=== PATIENT | female | born 1940 | race Caucasian/White ===

== ENCOUNTER → 2017-09-13 | Outpatient (CLI) | payer BC | LOC: FIMAGING 08:51 | PROVIDERS: ATTEND Physical Medicine & Rehabilitation | DX: M47.896 Other spondylosis, lumbar region (principal); M47.897 Other spondylosis, lumbosacral region; M89.38 Hypertrophy of bone, other site ==

== ENCOUNTER 2017-11-29 09:57 | Inpatient (IN) | payer OTHER, BC ==
--- NOTE | 2017-11-29 10:28 | EDPHY ---
H & P Time Seen by Provider: 11/29/17 10:28 HPI/ROS: CHIEF COMPLAINT: Swollen ankles HISTORY OF PRESENT ILLNESS: Patient is concerned that she has swollen ankles. She has a history of GI bleed and had swollen ankles with that before. She presents with 2 days of which she describes as bilateral swollen ankles. She also has some burning in both scapula which is a little bit worse with activity for the last 4 days. However the symptoms are present all the time. She says when this happens she can"here my heart thumb"but no syncope. Swollen ankles are not associated with pain in the leg or any recent trauma. No difficulty walking. No change in her shortness of breath symptoms. REVIEW OF SYSTEMS: Eye: no change in vision, legally blind in right eye ENT: no sore throat Cardiac: no chest pain or syncope Pulmonary: No cough, chronic shortness of breath from COPD unchanged. Abdomen: no vomiting, diarrhea, abdominal pain. Chronic constipation unchanged. Musculoskeletal: Chronic right sciatica unchanged. Skin: no rash Neuro: no headache, she has chronic right arm and hand pain after shoulder surgery which is unchanged. Constitutional: no fever : no urinary symptoms She says she"loves my potassium pills"which she thinks is weird because of the chalky taste. A comprehensive 10 point review of systems is otherwise negative aside from elements mentioned in the history of present illness. PAST MEDICAL HISTORY: Includes right shoulder surgery with chronic right arm pain, right sciatica. Previous colon AVM with GI bleed. Previous pericardial effusion. Social history: She has a twin who was recently diagnosed with atrial fibrillation. Retired nurse, to retired physician General Appearance: Alert and conversant, cooperative. Eyes: No scleral icterus. ENT, Mouth: Normal mucous membranes. Respiratory: Normal respiratory effort, breath sounds equal, lungs are clear to auscultation. Cardiovascular: Regular rate and rhythm. Gastrointestinal: Abdomen is soft and non tender. Neurological: Alert, face symmetric, normal motor and sensory in extremities. Skin: Patient is areas of ecchymosis greater on her right lower extremity than her left. Compartments are soft. Skin is not warm to the touch. No lymphangitis. No blisters. Musculoskeletal: No ankle edema palpated or appreciated. Psychiatric: Not agitated. Emergency Department course/MDM: Hematocrit is 24. Fecal occult blood pending. Admission for anemia with possible lower GI bleed. Gastroenterology consultation with Dr. Hays. Smoking Status: Former smoker Constitutional: Initial Vital Signs Temperature (C) 36.5 C 11/29/17 10:07 Heart Rate 79 11/29/17 10:07 Respiratory Rate 16 11/29/17 10:07 Blood Pressure 121/70 H 11/29/17 10:07 O2 Sat (%) 99 11/29/17 10:07 O2 Delivery Mode Room Air Allergies/Adverse Reactions: hydrocodone Allergy (Intermediate, Verified 11/29/17 10:04) Other-Enter Comments Home Medications: Medication Instructions Recorded Acetaminophen [Tylenol ES 500 mg 500 - 1,000 mg PO BID PRN 11/29/17 (*)] Aspirin [Aspirin 81mg (*)] 81 mg PO DAILY 11/29/17 Bimatoprost 0.01% [Lumigan 0.01% 1 drops LEFTEYE DAILY@204411/29/17 (*)] Brimonidine 0.15% [ALPHAGAN P 1 drops EACHEYE BID@11/29/17 0.15% (RX)] Denosumab [Prolia] 60 mg SQ .Q6MOS 11/29/17 Dextran 70/Hypromellose [Genteal 1 drop RTEYE BID PRN 11/29/17 Tears 0.1%-0.3% Drop] Docusate Sodium [Colace 100 MG (*)] 200 mg PO DAILY PRN 11/29/17 Eylea 1 dose INJ .[id number] 11/29/17 Fexofenadine HCl [Nadia Allergy] 180 mg PO DAILY 11/29/17 Gabapentin [Neurontin 100 MG (*)] 100 mg PO BID@08,16 11/29/17 Gabapentin [Neurontin 300 MG (*)] 300 mg PO HS 11/29/17 Ganciclovir [Zirgan] 1 gm OP DAILY PRN 11/29/17 Ibuprofen [Motrin (*)] 400 mg PO TID PRN 11/29/17 Nicotine Polacrilex [Nicorette gum 2 mg PO BID 11/29/17 (*)] Nicotine [Nicoderm Cq 14 mg (*)] 14 mg TD DAILY 11/29/17 Polyethylene Glycol 3350 [Miralax 17 gm PO DAILY PRN 11/29/17 17 gm (*)] Potassium Cl [Klor-Con 20 meq (*)] 20 meq PO DAILY@199911/29/17 Sennosides [Senna Lax] 3 tab PO DAILY PRN 11/29/17 Vit A/Vit C/Vit E/Zinc/Copper 1 each PO BID 11/29/17 [Preservision Tablet] aMILoride/HYDROCHLOROTHIAZIDE 1 each PO DAILY 11/29/17 [Amiloride HCl-Hctz 5-50 mg Tab] amLODIPine BESYLATE [Norvasc 2.5 2.5 mg PO DAILY 11/29/17 mg (*)] traMADol [Ultram 50 mg (*)] 50 mg PO BID 11/29/17 valACYclovir [Valtrex (*)] 1,000 mg PO DAILY PRN 11/29/17 Medical Decision Making - Diagnostics EKG Interpretation: 12-lead EKG interpreted by me; official reading is in trace master. My interpretation is sinus rhythm rate 65 with intraventricular conduction delay. Imaging Results: Imaging Impressions Chest X-Ray 11/29/17 10:38 Impression: 1. No pneumonia or pulmonary edema. 2. Suspect chronically dislocated right total shoulder arthroplasty. Differential Diagnosis: Differential for anemia considered including but not limited to upper GI bleed, lower GI bleed, bone marrow failure, hemolysis. Consult/Admit Bed Type: [facility] 1107, [facility] 1130 - Data Points Laboratory Results: Laboratory Results 11/29/17 10:25 11/29/17 10:25 11/29/17 11/29/17 11/29/17 11:02 10:25 10:25 WBC 8.65 10^3/uL 10^3/uL (3.80-9.50) RBC 3.48 10^6/uL L 10^6/uL (4.18-5.33) Hgb 7.6 g/dL L g/dL (12.6-16.3) Hct 24.7 % L % (38.0-47.0) MCV 71.0 fL L fL (81.5-99.8) MCH 21.8 pg L pg (27.9-34.1) MCHC 30.8 g/dL L g/dL (32.4-36.7) RDW 15.7 % H % (11.5-15.2) Plt Count 304 10^3/uL 10^3/uL (150-400) MPV 9.1 fL fL (8.7-11.7) Neut % (Auto) 78.1 % H % (39.3-74.2) Lymph % (Auto) 9.5 % L % (15.0-45.0) Roberts % (Auto) 8.8 % % (4.5-13.0) Eos % (Auto) 2.4 % % (0.6-7.6) Baso % (Auto) 0.7 % % (0.3-1.7) Nucleat RBC Rel Count 0.0 % % (0.0-0.2) Absolute Neuts (auto) 6.76 10^3/uL H 10^3/uL (1.70-6.50) Absolute Lymphs (auto) 0.82 10^3/uL L 10^3/uL (1.00-3.00) Absolute Monos (auto) 0.76 10^3/uL 10^3/uL (0.30-0.80) Absolute Eos (auto) 0.21 10^3/uL 10^3/uL (0.03-0.40) Absolute Basos (auto) 0.06 10^3/uL 10^3/uL (0.02-0.10) Absolute Nucleated RBC 0.00 10^3/uL 10^3/uL (0-0.01) Immature Gran % 0.5 % % (0.0-1.1) Immature Gran # 0.04 10^3/uL 10^3/uL (0.00-0.10) Sodium 142 mEq/L mEq/L (135-145) Potassium 3.4 mEq/L L mEq/L (3.5-5.2) Chloride 105 mEq/L mEq/L (97-110) Carbon Dioxide 25 mEq/l mEq/l (22-31) Anion Gap 12 mEq/L mEq/L (8-16) BUN 35 mg/dL H mg/dL (7-23) Creatinine 0.7 mg/dL mg/dL (0.6-1.0) Estimated GFR > 60 Glucose 92 mg/dL mg/dL (70-100) Calcium 9.7 mg/dL mg/dL (8.5-10.4) Troponin I < 0.012 ng/mL ng/mL (0.000-0.034) NT-Pro-B Natriuret Pep 191 pg/mL pg/mL (0-450) Stool Occult Bld Scrn NEGATIVE (NEGATIVE) Departure - Departure Disposition: [facility] Inpatient Acute Clinical Impression: Anemia Qualifiers: Anemia type: unspecified type Qualified Code(s): D64.9 - Anemia, unspecified Condition: Good
[2017-11-29 10:43] LABS: PLATELET COUNT 304 10^3/uL (150-400)
--- NOTE | 2017-11-29 10:49 | CPEKG ---
Heart Rate: 65 RR Interval: 923 P-R Interval: 148 QRSD Interval: 110 QT Interval: 420 QTC Interval: 437 P [place]: 67 QRS [place]: 94 T Wave [place]: 1 EKG Severity - ABNORMAL ECG - EKG Impression: SINUS RHYTHM EKG Impression: NONSPECIFIC INTRAVENTRICULAR CONDUCTION DELAY Electronically Signed By: Zay Mccray 29-Nov-2017 11:03:40
--- NOTE | 2017-11-29 11:40 | ASMTLACE ---
MICHELE Acuity / Level of Answers: Yes Care: Did the patient have an inpatient admission? # of Emergency department Answers: 1-2 visits in the last 6 months Score: 4 Date Signed: 11/29/2017 11:39 AM Electronically Signed By:Yun Robins RN
[2017-11-29] MEDS ORDERED: ONDANSETRON DISINTEGRATING 4 MG TAB PO PRN (13:58)
[2017-11-29] MEDS ORDERED: ONDANSETRON 4 MG/2 ML VIAL IVP PRN (13:58)
[2017-11-29] MEDS ORDERED: PEG 3350/NA SULF,BICARB,CL/KCL (GAVILYTE-G) 4000 ML BTL PO ONE ×2 (13:58→17:15)
[2017-11-29] MEDS ORDERED: ACETAMINOPHEN 325 MG TAB PO PRN (13:58)
[2017-11-29] MEDS ORDERED: TEARS/DEXTRAN 70/HYPROMELLOSE 15 ML OPHT.BTL RTEYE PRN ×2 (14:10→15:23)
--- NOTE | 2017-11-29 14:48 | GHP ---
[f rep st] HISTORY AND PHYSICAL DATE OF ADMISSION: 11/29/2017 CHIEF COMPLAINT: Weakness, heart palpitations. HISTORY OF PRESENT ILLNESS: The patient is a 77-year-old woman with a history significant for nonble eding colonic AV malformations. She has had chronic severe iron deficiency anemia in the past and wa s admitted with similar symptoms 2 years ago. She comes in today complaining of weakness, increasing edema, and heart palpitations. She said her symptoms started about 3 days ago. She has not complai ramona of shortness of breath or chest pain, but says her symptoms are quite similar to her presentation a couple years ago when she had anemia. She denies any change in her stool except for ongoing const ipation. She has had no fevers, chills, or weight changes. She denies any chest pain. No shortness of breath. She does have palpitations and can hear her heart pound. She denies abdominal pain, denice sea, vomiting. She has had no urinary symptoms. PAST MEDICAL HISTORY: 1. COPD, on oxygen at night. 2. Chronic pericarditis with chronic pericardial effusion, which is mild and stable. 3. Sciatica, followed by [facility]. 4. Chronic iron deficiency anemia. 5. Glaucoma. 6. Macular degeneration. 7. History of colonic AV malformations. 8. Hypertension. CURRENT MEDICATIONS: Include Tylenol 1000 mg as needed. Amiloride/hydrochlorothiazide daily. Amlod ipine daily. Aspirin 81 mg daily. Eye drops for her glaucoma. Prolia every 6 months. Artificial T ears. Gabapentin 100 mg twice daily and 300 mg at night. Nicotine patch. Ibuprofen. Potassium. M iraLAX. Senna Lax. Tramadol 50 b.i.d. Valtrex as needed. PreserVision. ALLERGIES: Hydrocodone. FAMILY HISTORY: Parents are . SOCIAL HISTORY: She is and lives with her in their own home in [facility]. She i s a past smoker. She does not drink alcohol. She has a living will and wishes to be [id number]-[id number] ate at this time. She does not need any assistive devices while walking. She cannot drive because o f her eyesight. PHYSICAL EXAMINATION: VITAL SIGNS: Heart rate 77, blood pressure 140/61, respirations 18, _ 97% on room air, afebrile. GENERAL: She is a very pleasant 77-year-old. She is in very mild dist ress. She is alert and oriented. Speech is clear and fluent. HEENT: Atraumatic. NECK: Supple. No adenopathy. HEART: Regular rate and rhythm. No murmur, gallop, or rub. LUNGS: Clear bilateral ly. ABDOMEN: Soft. No masses noted. Positive bowel sounds but diminished. EXTREMITIES: No clubb ing, cyanosis. She has minimally trace edema bilaterally. MUSCULOSKELETAL: No joint deformities. No significant atrophy. SKIN: Intact. No rash. NEUROLOGIC: Speech is fluent. She is alert and or iented. Moves all 4 extremities. LABORATORY DATA: CBC shows a white count of 8.6, hemoglobin 7.6 with platelet count of 304. Electro lytes and renal function are normal. Troponin negative. BNP is normal. Stool occult blood is negat elaine. Chest x-ray unremarkable. ASSESSMENT AND PLAN: A 77-year-old presents with palpitations, found to be anemic and severely iron deficient. Given her past history of colonic arteriovenous malformations, I suspect that she is havi ng a slow gastrointestinal bleed that may be responsible for her slow blood loss anemia. 1. Anemia, iron deficient. Likely lower gastrointestinal bleed, but given her ongoing ibuprofen use , she could certainly have developed an upper gastrointestinal bleed as well. Plan will be to start her on Protonix. I have consulted Gastroenterology and will start her on a GoLYTELY prep for likely colonoscopy in the morning. In the meantime, I will transfuse her 1 unit of packed red blood cells. Follow up hemoglobin and repeat transfusion if she has a hemoglobin less than 8. 2. Chronic obstructive pulmonary disease with nocturnal oxygen needs. We will continue that and con tinue her usual medications. 3. Hypertension. Blood pressure is stable. We will continue her blood pressure medications in the morning when she is able to take oral medications. 4. Glaucoma. Continue her eye drops. 5. Sciatica, severe. Continue her pain medications as requested. She will follow up with Dr. Melvin pardo as an outpatient. 6. Code status: Patient wishes to be a [id number]. /[id number]/MODL
--- NOTE | 2017-11-29 14:53 | GCON ---
[f rep st] CONSULTATION DATE OF CONSULTATION: 11/29/2017 CHIEF COMPLAINT: Anemia. I am asked to see this patient in consultation by Dr. Henley for chief complaint of anemia. HISTORY OF PRESENT ILLNESS: The patient is a 77-year-old known to our practice for evaluation of anemia in 2014. At that time, she underwent upper and lower endoscopy by Dr. Morales. Her upper endoscopy showed mild gastritis, but biopsy was unremarkable. Duodenal biopsies were normal. On her colonoscopy, she had an AVM in the cecum, but it was elected not to treat this, as it was not actively bleeding. She did have diverticulosis noted. Lifelong iron therapy was recommended. She states that she did take iron and her iron stores and anemia resolved, but after a period time she decided to stop the iron. The patient has poor vision, is unaware of any change in color of her stools, and is not sure if there has been any bright red blood or melena. She does have chronic constipation, for which she takes laxatives. No diarrhea. Some occasional abdominal pain, but no nausea and vomiting. She does have occasional dysphagia, but points to her upper throat. She also uses heavy NSAID use, with Motrin 2 tabs t.i.d. for chronic back pain. ALLERGIES: Hydrocodone. MEDICINES ON ADMISSION: Include ibuprofen, folic acid, Neurontin, hydrochlorothiazide, tramadol, and Norvasc. PAST MEDICAL HISTORY: Notable for right shoulder surgery with chronic arm pain , right sciatica, a history of iron deficiency with known cecal AVM, previous pericardial effusion. SOCIAL HISTORY: She is a retired nurse. FAMILY HISTORY: Notable for peptic ulcer disease in her twin brother. REVIEW OF SYSTEMS: I have performed a complete review of systems, which is negative except for the pertinent positives and negatives noted above in the HPI. PHYSICAL EXAM: VITAL SIGNS: Afebrile at 36.6, BP 140/61, pulse 77. CONSTITUTIONAL: Alert and oriented. No apparent distress. EYES: No scleral icterus. HEENT: No oral lesions. CARDIOVASCULAR: Regular rhythm. CHEST: Clear to auscultation. ABDOMEN: Soft, nontender. No hepatosplenomegaly. NEUROLOGIC: Nonfocal. SKIN: No rashes. LABORATORY DATA: Patient has microcytic anemia, with a hemoglobin of 7.1, hematocrit of 24.7, MCV of 71, white count 3.6, and platelets 304. BUN and creatinine are 35 and 0.7. ASSESSMENT: Microcytic anemia with history of known arteriovenous malformations , and patient has tapered off her iron. It is possible that her anemia may be from chronic bleeding from arteriovenous malformations in the cecum or ulcer in the small bowel. However, of concern, patient does take a great deal of ibuprofen. Consider she may have had a subacute upper gastrointestinal bleed. The patient given her poor vision is not unaware of any melena or bright red blood. Fortunately, at this point, she is hemodynamically stable and Hemoccult stool is negative. PLAN: 1. Would recommend transfuse. 2. Suggest upper and lower endoscopy for evaluation for cause of blood loss. Further recommendations to follow. Thanks for this consult. /[id number]/MODL MTDD
[2017-11-29] MEDS ORDERED: SYSTANE ULTRA RTEYE PRN (15:23)
[2017-11-29] MEDS: GABAPENTIN 100 MG CAP PO SCH (15:31)
[2017-11-29] MEDS: PANTOPRAZOLE SODIUM 40 MG TAB PO SCH ×2 (15:31→20:45)
--- NOTE | 2017-11-29 15:50 | PDMN ---
Medical Necessity Medical necessity: C/M review: Patient meets SOLEDAD fox under M-35, Anemia, iron deficiency or unspecified, M-182 Gastrointestinal bleed, lower: Acute and persistent severe iron deficiency anemis, likely lower GI bleed, possible upper GI bleed as well, Hgb 7.6, Hct 24.7, requiring GoLYTELY bowel prep, planned 11/30/2017 colonoscopy, 1 unit PRCS thus far, ongoing oral Protonix BID, pulse oximetry, supplemental O2, comorbid ongoing oral ibuprofen use, COPD with nocturnal O2 needs, hypertension, glaucoma, severe sciatica, history of chronic pericarditis with chronic pericardial effusion - mild and stable, macular degeneration, colonic AV malformations. anticipates > 2 MN LOS for ongoing med nec for eval and TX of above.
[2017-11-29] MEDS: BRIMONIDINE 0.15% 5 ML OPHT.BTL EACHEYE SCH (20:28)
[2017-11-29] MEDS: traMADol 50 MG TAB PO SCH (20:45)
[2017-11-29] MEDS ORDERED: BIMATOPROST 0.01% 2.5 ML OPHT.BTL LEFTEYE SCH (20:45)
[2017-11-29] MEDS: PRESERVISION AREDS2 FORMULA EYE VIT 1 EACH PO SCH (20:58)
[2017-11-29] MEDS ORDERED: NON-FORMULARY NEW DRUG (Vit A/Vit C/Vit E/Zinc/Copper [Preservision Areds Tablet] 1 EACH) PO SCH (21:00)
[2017-11-29] MEDS ORDERED: GENTEAL EYE DROPS EACHEYE SCH (21:00)
[2017-11-29] MEDS ORDERED: GABAPENTIN 300 MG CAP PO SCH (21:00)
[2017-11-30 05:27] LABS: PLATELET COUNT 252 10^3/uL (150-400)
[2017-11-30] MEDS: BRIMONIDINE 0.15% 5 ML OPHT.BTL EACHEYE SCH (07:39)
--- NOTE | 2017-11-30 08:11 | PDANEPAE ---
ANE History of Present Illness Patient presents for EGD, colonoscopy ANE Past Medical History - Cardiovascular History Hx Hypertension: Yes Hx Arrhythmias: No Hx Coronary Artery / Peripheral Vascular Disease: No Hx CHF / Valvular Disease: No Cardiovascular History Comment: SMALL CARDIAC EFFUSION THAT HAS BEEN PRESENT FOR YEARS AND IS STABLE. ON HCTZ FOR SWELLING OF ANKLES - Pulmonary History Hx COPD: Yes Hx Asthma/Reactive Airway Disease: No Hx Recent Upper Respiratory Infection: Yes Hx Oxygen in Use at Home: Yes O2 in Use at Home (L/minute): 2 Hx Sleep Apnea: No Sleep Apnea Screening Result - Last Documented: Negative Pulmonary History Comment: RUPTURED PULM PLEB WITH CT. EMPHYSEMA - Neurologic History Hx Cerebrovascular Accident: No Hx Seizures: No Hx Dementia: No Neurologic History Comment: BROKEN BACK WHEN SHE FELL ON BALL. 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 ANXIETY/ DEPRESSION - Cancer History Hx Cancer: No - Congenital Disorder History Hx Congenital Disorders: No - GI History Hx Gastrointestinal Disorders: No - Other Health History Other Health History: NONE - Chronic Pain History Chronic Pain: Yes (RIGHT SHOULDER AND ARM. LEFT WRIST) - Surgical History Prior Surgeries: BOXED SHOULDER IMPLANT SURGERY 2011. RIGHT TOTAL SHOULDER SCOPE WITH CAMACHO 07/22/11. EPIDURAL INJECTIONS FOR SIATICA. CATARACT SURGERY BILATERAL. RIGHT RETINAL SURGERY ANE Review of Systems Review of Systems: ANE Patient History - Allergies Allergies/Adverse Reactions: hydrocodone Allergy (Intermediate, Verified 11/29/17 10:04) Other-Enter Comments - Home Medications Home medications: home medication list seen and reviewed Home Medications: Acetaminophen [Tylenol ES 500 mg (*)] 500 - 1,000 mg PO BID PRN 11/29/17 [Last Taken Unknown] Aspirin [Aspirin 81mg (*)] 81 mg PO DAILY 11/29/17 [Last Taken 11/29/17] Bimatoprost 0.01% [Lumigan 0.01% (*)] 1 drops LEFTEYE DAILY@204411/29/17 [Last Taken 11/28/17] Brimonidine 0.15% [ALPHAGAN P 0.15% (RX)] 1 drops EACHEYE BID@ [Last Taken 11/29/17] Denosumab [Prolia] 60 mg SQ .Q6MOS 11/29/17 [Last Taken 06/02/17] Dextran 70/Hypromellose [Genteal Tears 0.1%-0.3% Drop] 1 drop RTEYE BID PRN 12/14 [Last Taken 11/29/17] Docusate Sodium [Colace 100 MG (*)] 200 mg PO DAILY PRN 11/29/17 [Last Taken Unknown] Eylea 1 dose INJ .[id number] 11/29/17 [Last Taken Unknown] Fexofenadine HCl [Nadia Allergy] 180 mg PO DAILY 11/29/17 [Last Taken 11/29/17 ] Gabapentin [Neurontin 100 MG (*)] 100 mg PO BID@11/29/17 [Last Taken 11/29] Gabapentin [Neurontin 300 MG (*)] 300 mg PO HS 11/29/17 [Last Taken 11/28/17] Ganciclovir [Zirgan] 1 gm OP DAILY PRN 11/29/17 [Last Taken Unknown] Ibuprofen [Motrin (*)] 400 mg PO TID PRN 11/29/17 [Last Taken Unknown] Nicotine Polacrilex [Nicorette gum (*)] 2 mg PO BID 11/29/17 [Last Taken ] Nicotine [Nicoderm Cq 14 mg (*)] 14 mg TD DAILY 11/29/17 [Last Taken 11/29/17] Polyethylene Glycol 3350 [Miralax 17 gm (*)] 17 gm PO DAILY PRN 11/29/17 [Last Taken Unknown] Potassium Cl [Klor-Con 20 meq (*)] 20 meq PO DAILY@199911/29/17 [Last Taken 11/16] Sennosides [Senna Lax] 3 tab PO DAILY PRN 11/29/17 [Last Taken Unknown] Vit A/Vit C/Vit E/Zinc/Copper [Preservision Tablet] 1 each PO BID 11/29/17 [ Last Taken 11/29/17] aMILoride/HYDROCHLOROTHIAZIDE [Amiloride HCl-Hctz 5-50 mg Tab] 1 each PO DAILY 11/29/17 [Last Taken 11/29/17] amLODIPine BESYLATE [Norvasc 2.5 mg (*)] 2.5 mg PO DAILY 11/29/17 [Last Taken ] traMADol [Ultram 50 mg (*)] 50 mg PO BID 11/29/17 [Last Taken 11/29/17] valACYclovir [Valtrex (*)] 1,000 mg PO DAILY PRN 11/29/17 [Last Taken Unknown] - NPO status NPO Status: no food or drink >8 hours NPO Since - Liquids (Date): 11/30/17 NPO Since - Liquids (Time): 00:00 NPO Since - Solids (Date): 11/30/17 NPO Since - Solids (Time): 00:00 - Anes Hx Anes Hx: no prior problems - Smoking Hx Smoking Status: Former smoker - Family Anes Hx Family Hx Anesthesia Complications: NONE ANE Labs/Vital Signs - Labs Result Diagrams: 11/30/17 04:52 11/30/17 04:52 - Vital Signs Blood Pressure: 140/62 Heart Rate: 60 Respiratory Rate: 12 O2 Sat (%): 92 Height: 165.1 cm Weight: 42.638 kg ANE Physical Exam - Airway Neck exam: FROM Mallampati Score: Class 2 - Pulmonary Pulmonary: no respiratory distress - Cardiovascular Cardiovascular: regular rate and rhythym - ASA Status ASA Status: III
[2017-11-30] MEDS ORDERED: LIDOCAINE 2% 5 ML SDV ONE (08:13)
[2017-11-30] MEDS ORDERED: PROPOFOL/EMULSION 500 MG/50 ML BOTTLE IV ONE (08:13)
[2017-11-30] MEDS ORDERED: ONDANSETRON 4 MG/2 ML VIAL IVP PRN (08:39)
[2017-11-30] MEDS ORDERED: ALBUTEROL 3 ML DEYVIAL IH PRN (08:39)
[2017-11-30] MEDS ORDERED: LR 500 ML IV PRN (08:39)
[2017-11-30] MEDS ORDERED: NALOXONE HCL 0.4 MG/ML INJ IVP PRN (08:39)
[2017-11-30] MEDS ORDERED: Fexofenadine Hcl [Allegra Allergy] 180 MG PO SCH (09:00)
[2017-11-30] MEDS ORDERED: NICOTINE 14 MG/24 HR PATCH TD SCH (09:00)
--- NOTE | 2017-11-30 09:08 | POSTANESTH ---
Post Anesthetic Evaluation Cardiovascular Status: Similar to Pre-Op Cond Respiratory Status: Similar to Pre-op Cond. Level of Consciousness/Mental Status: Alert and Oriented Pain Control: Adequate, Prn Tx Ordered Nausea/Vomiting Control: Adequate, Prn Tx Ordered Complications Possibly Related to Anesthesia: None Noted
[2017-11-30 09:35] VITALS: PULSE 63; O2SAT 93
[2017-11-30] MEDS ORDERED: SENNOSIDES 1 TAB PO PRN (10:31)
[2017-11-30] MEDS ORDERED: POLYETHYLENE GLYCOL 3350 17 GM PKT PO PRN (10:31)
[2017-11-30] MEDS ORDERED: valACYclovir 500 MG TAB PO PRN (10:31)
[2017-11-30] MEDS ORDERED: GANCICLOVIR OP PRN (10:31)
[2017-11-30] MEDS ORDERED: DOCUSATE SODIUM 100 MG CAP PO PRN (10:31)
[2017-11-30] MEDS ORDERED: ACETAMINOPHEN 500 MG TAB PO PRN (10:31)
[2017-11-30] MEDS ORDERED: Denosumab [Prolia] 60 MG SQ SCH (10:45)
[2017-11-30] MEDS ORDERED: EYLEA INJ SCH (10:45)
[2017-11-30] MEDS: PRESERVISION AREDS2 FORMULA EYE VIT 1 EACH PO SCH (10:53)
[2017-11-30] MEDS: traMADol 50 MG TAB PO SCH (10:53)
[2017-11-30] MEDS: PANTOPRAZOLE SODIUM 40 MG TAB PO SCH (10:54)
[2017-11-30] MEDS: GABAPENTIN 100 MG CAP PO SCH (11:04)
[2017-11-30 11:35] VITALS: BP 147/70; RESP 16; TEMP 97.4
--- NOTE | 2017-11-30 14:00 | ASDISCHSUM ---
Discharge Information Plan Status:Home with DME or Oxygen Medically Cleared to Leave:11/29/2017 Discharge Date:11/30/2017 01:20 PM CM D/C Disposition:Home, Routine, Self-Care ADT D/C Disposition:Home, Routine, Self-Care Projected Discharge Date:11/30/2017 12:00 AM Transportation at D/C:Friend Discharge Delay Reason: Follow-Up Date:11/30/2017 12:00 AM Discharge Slot:2 - 12:01 pm - 18:00 pm Final Diagnosis: Placement Information Patient Contact Information Contact Name:VERONICA Relationship: Address:[address] City:[place] Alternate Phone: [facility]/Zip Code:[place] [address] Email: Financial Information Financial Class:HMO and PPO Plans Primary Plan Desc:[employer] [facility] PL[facility] Primary Plan Number:[id number] Secondary Plan Desc:MEDICARE INPATIENT Secondary Plan Number:[id number] Assessment Information LACE LACE Acuity / Level of Answers: Yes Care: Did the patient have an inpatient admission? # of Emergency department Answers: 1-2 visits in the last 6 months Score: 4 Date Signed: 11/29/2017 11:39 AM Electronically Signed By:Yun Robins RN [facility] CM Progress Note CM Note CM Note Notes: Per patient chart, Shawna is a 77 year old who presented to ED 11/29/17 with palpitations, bilateral ankle edema, and history of GI bleed. Patient found to be anemic and extremely iron deficient, patient was assessed by GI and it was recommended patient undergo a colonoscopy which was completed this morning. 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 Patient does not drive due to blind R eye. Patient is listed with DNR status. Demographics lists health coverage as [employer] Federal Plan and Medicare Inpatient. Discharge planned for today. CM available to follow and address discharge needs. Date Signed: 11/30/2017 01:58 PM Electronically Signed By:Sejal Wells Case Management Discharge Plan Note Case Management Discharge Discharge Order Complete? Answers: Yes Patient to Obtain Answers: via Family Medications Transportation Arranged Answers: Family/Friends Transport will Pick (Date 11/30/2017 01:00 AM & Time) Family Notified Answers: Yes Discharge Comments Notes: CM met with patient prior to discharge, she states she has everything set up at home. Patient signed IM and copy given to patient and placed in back of chart. Patient states her daughter in law will be taking her home today. No further discharge needs identified at this time, patient to discharge independently. Date Signed: 11/30/2017 01:59 PM Electronically Signed By:Sejal Wells Intervention Information Intervention Type:*IM-Signed Date of Service:11/30/2017 11:43 AM Patient Type:Inpatient Staff Member:Sejal Wells Hours: Discipline: Severity: Comment:placed in back of chart
--- NOTE | 2017-11-30 14:56 | GDS ---
[f rep st] DISCHARGE SUMMARY CHIEF COMPLAINT: Weakness. PHYSICAL EXAM: GENERAL: The patient is alert. VITAL SIGNS: Afebrile at 36.3 , pulse is 63, respiratory rate 16, blood pressure is 147/70, she is saturating greater than 90% on room air. I have seen and evaluated the patient on the day of discharge. HOSPITAL COURSE: The patient is a 77-year-old female, who presented to the urgent care with complaints of weakness. She was evaluated and transferred to the hospital for admission. She was diagnosed with: 1. Anemia, this is iron deficient in component. The patient did receive consultation during this hospitalization from Gastroenterology. An upper and lower endoscopy were performed during this hospitalization, noting gastritis. It was recommended that the patient continue her oral iron supplement and be initiated on Protonix at the time of disposition. She did receive a unit of packed red blood cells during this hospital course. Her blood count remained stable at the time of disposition, with no further signs of bleeding. She will follow up with her primary care physician. 2. Chronic obstructive pulmonary disease. She uses oxygen nocturnally and will continue this with no acute exacerbation identified. 3. Hypertension. Her blood pressure was well controlled during this hospital course. DISPOSITION: The patient will be discharged home independently. The patient recovered faster then anticipated requiring less hospitalization then expected. FOLLOWUP: Will be with Dr. Morales, her primary inspector rag sorting, as well as Dr. Maddie Peck, her primary care provider. DISCHARGE MEDICATIONS: I have not adjusted the patient's previously prescribed home medications. I have initiated Protonix and provided a prescription for her at the time of disposition. She is instructed to have her hemoglobin and hematocrit checked in the next 2-3 days to assure stability. She is aware of this. I have spent greater than 35 minutes in the care, coordination, and management of the patient's disposition. /[id number]/MODL MTDD
[2017-11-30] MEDS ORDERED: POTASSIUM CL 20 MEQ TAB PO SCH (20:00)
[2017-11-30] MEDS ORDERED: NICOTINE POLACRILEX 2 MG GUM B SCH (21:00)
--- NOTE | 2017-12-03 07:51 | GIREPORT ---
[facility] Surgical Services - Endoscopy Department Patient Name: CROW LOERA Procedure Date: 11/30/2017 8:10 AM Patient Type: Inpatient Attending MD/ ER Physician: Vanda Hays MD Procedure: Upper GI endoscopy Indications: Iron deficiency anemia Providers: Vanda Hays MD Medicines: Monitored Anesthesia Care Complications: No immediate complications. Description of Procedure: After obtaining informed consent, the endoscope was passed under direct vision. Throughout the procedure, the patient's blood pressure, pulse, and oxygen saturations were monitored continuously. The Endoscope was intro duced through the mouth, and advanced to the second part of duodenum. The upp er GI endoscopy was accomplished without difficulty. The patient tolerated th e procedure well. Findings: The esophagus was normal. Localized moderate inflammation characterized by erosions and granulari ty was found in the gastric antrum. Biopsies were taken with a cold forcep s for histology. Estimated blood loss was minimal. The examined duodenum was normal. Estimated Blood Loss: Estimated blood loss was minimal. Post Op Diagnosis: - Normal esophagus. - Gastritis. Biopsied. Suspect rom NSAIDS. No acitve bleeding. - Normal examined duodenum. Recommendation: - Await pathology results. - Advance diet as tolerated. - Limit NSAIDS if possible. - Use Protonix (pantoprazole) 40 mg PO daily for at least 8 weeks or indefinitely if requires director long term care NSADIS. - Supplement iron, senior care for AVMs in colon. - [facility]. - Thank you for allowing me to participate in the care of your patient. Attending Participation: I personally performed the entire procedure. Vanda Hays MD Vanda Hays MD 11/30/2017 8:51:10 AM This report has been signed electronicallyKobrandyn Hays MD Number of Addenda: 0 Note Initiated On: 11/30/2017 8:10 AM [email or web address]
--- NOTE | 2017-12-03 07:52 | GIREPORT ---
[facility] Surgical Services - Endoscopy Department Patient Name: CROW LOERA Procedure Date: 11/30/2017 8:10 AM Patient Type: Inpatient Attending MD/ ER Physician: Vanda Hays MD Procedure: Colonoscopy Indications: Iron deficiency anemia, discussed treatment for AVM but pt declined treatment due to potential risks unless actively bleeding. Providers: aVnda Hays MD Medicines: Monitored Anesthesia Care Complications: No immediate complications. Description of Procedure: After obtaining informed consent, the scope was passed under direct vis ion. Throughout the procedure, the patient's blood pressure, pulse, and oxyg en saturations were monitored continuously. The Colonoscope with irrigatio n channel was introduced through the anus and advanced to the cecum, identified by appendiceal orifice and ileocecal valve. The colonoscopy was performed without difficulty. The patient tolerated the procedure well. The quality of the bowel preparation was poor. The ileocecal valve, appendi ceal orifice, and rectum were photographed. Findings: The perianal and digital rectal examinations were normal. Multiple diverticula were found in the entire colon. A few small angioectasias without bleeding were found in the cecum. Estimated Blood Loss: Estimated blood loss: none. Post Op Diagnosis: - Preparation of the colon was poor. - Diverticulosis in the entire examined colon. - Non-bleeding colonic angioectasias. - No specimens collected. Recommendation: - Advance diet as tolerated. - No repeat colonoscopy due to age. - MCC iron. - Miralax daily for constipation. - Will sign off. - [facility] to [facility]. - Thank you for allowing me to participate in the care of your patient. Attending Participation: I personally performed the entire procedure. Vanda Hays MD Vanda Hays MD 11/30/2017 8:55:20 AM This report has been signed electronicallyVanda Hays MD Number of Addenda: 0 Note Initiated On: 11/30/2017 8:10 AM Total Procedure Duration Time 0 hours 15 minutes 56 seconds [email or web address]
== END 2017-11-30 13:20 | disposition home or self-care (01) | DRG 812 ==
LOC: F3E 14:25
PROVIDERS: ADMIT Hospitalist; ATTEND Hospitalist
PROC: 30233N1 Transfusion of Nonautologous Red Blood Cells into Peripheral Vein, Percutaneous Approach (ICD-10-PCS; 2017-11-29)
PROC: 0DJD8ZZ Inspection of Lower Intestinal Tract, Via Natural or Artificial Opening Endoscopic (ICD-10-PCS; principal; 2017-11-30 08:00)
PROC: 0DB68ZX Excision of Stomach, Via Natural or Artificial Opening Endoscopic, Diagnostic (ICD-10-PCS; principal; 2017-11-30 08:00)
DX: D50.9 Iron deficiency anemia, unspecified (principal); J44.9 Chronic obstructive pulmonary disease, unspecified; I10 Essential (primary) hypertension; K29.70 Gastritis, unspecified, without bleeding; H40.9 Unspecified glaucoma; M54.30 Sciatica, unspecified side; Q45.8 Other specified congenital malformations of digestive system; Z66 Do not resuscitate; Z87.891 Personal history of nicotine dependence
CPT/HCPCS: J2704; P9016

== ENCOUNTER 2018-04-25 12:07 | Emergency (ER) | payer BC ==
[2018-04-25] MEDS ORDERED: NS 1,000 ML IV ONE (13:22)
[2018-04-25] MEDS ORDERED: HYDROmorphONE/DILAUDID 2 MG/ML INJ IVP ONE (13:22)
[2018-04-25] MEDS ORDERED: ONDANSETRON 4 MG/2 ML VIAL IVP ONE (13:22)
--- NOTE | 2018-04-25 13:26 | EDPHY ---
H & P Stated Complaint: back/right side pain starting this morning Time Seen by Provider: 04/25/18 13:14 HPI/ROS: CHIEF COMPLAINT: Right flank pain HISTORY OF PRESENT ILLNESS: Patient is an 78-year-old female history of COPD and chronic back pain with sciatica who comes to the emergency department complaining of pain in her right flank that began while she was sitting at the table this morning. It was gradual in onset but has progressed throughout the day. She now states she has never had back pain this bad before. She had a normal urination at 9:00 a.m.. No nausea vomiting. No trauma. It is worsened by movement. No focal weakness, paresthesias or deficits. No bowel or bladder abnormalities. Fever. She has never had kidney stones before. REVIEW OF SYSTEMS: Constitutional: denies: chills, fever, recent illness, recent injury EENTM: denies: blurred vision, double vision, nose congestion Respiratory: denies: cough, shortness of breath Cardiac: denies: chest pain, irregular heart rate, lightheadedness, palpitations Gastrointestinal/Abdominal: denies: abdominal pain, diarrhea, nausea, vomiting, blood streaked stools Genitourinary: denies: dysuria, frequency, hematuria, pain Musculoskeletal: See HPI Skin: denies: lesions, rash, jaundice, bruising Neurological: denies: headache, numbness, paresthesia, tingling, dizziness, weakness Hematologic/Lymphatic: denies: blood clots, easy bleeding, easy bruising Immunologic/allergic: denies: HIV/AIDS, transplant EXAM: GENERAL: Well-appearing, well-nourished and in no acute distress. HEAD: Atraumatic, normocephalic. EYES: Pupils equal round and reactive to light, extraocular movements intact, sclera anicteric, conjunctiva are normal. ENT: TMs normal, nares patent, oropharynx clear without exudates. Moist mucous membranes. NECK: Normal range of motion, supple without lymphadenopathy or JVD. LUNGS: Breath sounds clear to auscultation bilaterally and equal. No wheezes rales or rhonchi. HEART: Regular rate and rhythm without murmurs, rubs or gallops. ABDOMEN: Soft, nontender, normoactive bowel sounds. No guarding, no rebound. No masses appreciated. BACK: Right CVA pain, no tenderness, increased with movement, no spinal tenderness, step-offs or deformities EXTREMITIES: Normal range of motion, no pitting or edema. No clubbing or cyanosis. NEUROLOGICAL: Cranial nerves II through XII grossly intact. Normal speech, normal gait. 5/5 strength, normal movement in all extremities, normal sensation PSYCH: Normal mood, normal affect. SKIN: Warm, dry, normal turgor, no visible rashes or lesions. Source: Patient Exam Limitations: No limitations - Personal History Tetanus Vaccine Date: 2005 - Medical/Surgical History Hx Asthma: Yes Hx Chronic Respiratory Disease: Yes Hx Diabetes: No Hx Cardiac Disease: Yes Hx Renal Disease: No Hx Cirrhosis: No Hx Alcoholism: Yes Hx HIV/AIDS: No Hx Splenectomy or Spleen Trauma: No Other PMH: COPD, legally blind right eye, macular degeneration,glaucoma, pneumonia,ruptured bleb with chest tube, edema, T8 crushed vertebrae, R shoulder surgery, sciatica, Colon AV malformation - Family History Significant Family History: No pertinent family hx - Social History Smoking Status: Former smoker Alcohol Use: Sober Drug Use: None Constitutional: Initial Vital Signs Temperature (C) 36.7 C 04/25/18 12:12 Heart Rate 87 04/25/18 12:12 Respiratory Rate 20 04/25/18 12:12 Blood Pressure 178/161 H 04/25/18 12:12 O2 Sat (%) 96 04/25/18 12:12 O2 Delivery Mode Nasal Cannula O2 (L/minute) 2 Allergies/Adverse Reactions: hydrocodone Allergy (Intermediate, Verified 04/25/18 12:11) Other-Enter Comments Home Medications: Medication Instructions Recorded Acetaminophen [Tylenol ES 500 mg 500 - 1,000 mg PO BID PRN 11/29/17 (*)] Aspirin [Aspirin 81mg (*)] 81 mg PO DAILY 11/29/17 Bimatoprost 0.01% [Lumigan 0.01% 1 drops LEFTEYE DAILY@204411/29/17 (*)] Brimonidine 0.15% [Alphagan P 1 drops EACHEYE BID@11/29/17 0.15%] Denosumab [Prolia] 60 mg SQ .Q6MOS 11/29/17 Dextran 70/Hypromellose [Genteal 1 drop RTEYE BID PRN 11/29/17 Tears 0.1%-0.3% Drop] Docusate Sodium [Colace 100 MG (*)] 200 mg PO DAILY PRN 11/29/17 Eylea 1 dose [id number] .[id number] 11/29/17 Fexofenadine HCl [Nadia Allergy] 180 mg PO DAILY 11/29/17 Gabapentin [Neurontin 100 MG (*)] 100 mg PO BID@08,16 11/29/17 Gabapentin [Neurontin 300 MG (*)] 300 mg PO HS 11/29/17 Ganciclovir [Zirgan] 1 gm OP DAILY PRN 11/29/17 Ibuprofen [Motrin (*)] 400 mg PO TID PRN 11/29/17 Nicotine Polacrilex [Nicorette gum 2 mg PO BID 11/29/17 (*)] Nicotine [Nicoderm Cq 14 mg (*)] 14 mg TD DAILY 11/29/17 Polyethylene Glycol 3350 [Miralax 17 gm PO DAILY PRN 11/29/17 17 gm (*)] Potassium Cl [Klor-Con 20 meq (*)] 20 meq PO DAILY@199911/29/17 Sennosides [Senna Lax] 3 tab PO DAILY PRN 11/29/17 Vit A/Vit C/Vit E/Zinc/Copper 1 each PO BID 11/29/17 [Preservision Areds Tablet] aMILoride/HYDROCHLOROTHIAZIDE 1 each PO DAILY 11/29/17 [Amiloride HCl-Hctz 5-50 mg Tab] amLODIPine BESYLATE [Norvasc 2.5 2.5 mg PO DAILY 11/29/17 mg (*)] traMADol [Ultram 50 mg (*)] 50 mg PO BID 11/29/17 valACYclovir [Valtrex (*)] 1,000 mg PO DAILY PRN 11/29/17 Pantoprazole Sodium [Protonix 40mg 40 mg PO BID #60 tab 11/30/17 (*)] Ketorolac Tromethamine 10 mg PO Q6H PRN #16 tab 04/25/18 Ondansetron Odt [Zofran Odt 4 mg 4 mg PO Q4 PRN #20 tab 04/25/18 (RX)] Pantoprazole Sodium [Protonix 40mg 40 mg PO DAILY #30 tab 04/25/18 (*)] Tamsulosin HCl [Flomax] 0.4 mg PO DAILY #10 cap 04/25/18 Medical Decision Making - Diagnostics Imaging: Discussed imaging studies w/ call out clerk Radiologist ED Course/Re-evaluation: We discussed the CT results. Patient is reassured. is now at the bedside. Patient still complains of pain but is significantly sedated after the 2.5 Valium. We will treat with Toradol as well. 4 p.m. The patient is feeling completely better. She is eager to go home. We discussed home care and follow-up with Urology. She is grateful. We discussed indications for returning. Differential Diagnosis: Partial list of the Differential diagnosis considered include but were not limited to; kidney stone, muscle strain and although unlikely based on the history and physical exam, I also considered radiculopathy, fracture, infection. I discussed these differential diagnoses and the plan with the patient as well as the usual and expected course. The patient understands that the diagnosis is provisional and that in medicine we are not always correct and that further workup is often warranted. Usual and customary warnings were given. All of the patient's questions were answered. The patient was instructed to return to the emergency department should the symptoms at all worsen or return, otherwise to followup with the physician as we discussed. - Data Points Laboratory Results: Laboratory Results 04/25/18 13:15 04/25/18 13:15 Medications Given: Discontinued Medications Diazepam (Valium) 2.5 mg IVP EDNOW ONE Stop: 04/25/18 14:22 Last Admin: 04/25/18 14:41 Dose: 2.5 mg Hydromorphone HCl (Dilaudid) 0.5 mg IVP EDNOW ONE Stop: 04/25/18 13:23 Last Admin: 04/25/18 13:38 Dose: 0.5 mg Sodium Chloride (Ns) 1,000 mls @ 0 mls/hr IV EDNOW ONE; Wide Open PRN Reason: Protocol Stop: 04/25/18 13:23 Last Admin: 04/25/18 13:37 Dose: 1,000 mls Ketorolac Tromethamine (Toradol) 15 mg IVP EDNOW ONE Stop: 04/25/18 14:45 Last Admin: 04/25/18 14:46 Dose: 15 mg Ondansetron HCl (Zofran) 4 mg IVP EDNOW ONE Stop: 04/25/18 13:23 Last Admin: 04/25/18 13:38 Dose: 4 mg Departure - Departure Disposition: Home, Routine, Self-Care Clinical Impression: Kidney stone on right side Condition: Fair Instructions: Kidney Stones (ED) Referrals: Maddie Peck MD [Primary Care Provider] - As per Instructions Fabrice Fritz MD [Medical Doctor] - 5-7 days, if not improved Prescriptions: Ketorolac Tromethamine 10 mg PO Q6H PRN #16 tab PRN Reason: Pain/inflammation Ondansetron Odt [Zofran Odt 4 mg (RX)] 4 mg PO Q4 PRN #20 tab PRN Reason: Nausea & Vomiting Pantoprazole Sodium [Protonix 40mg (*)] 40 mg PO DAILY #30 tab Tamsulosin HCl [Flomax] 0.4 mg PO DAILY #10 cap
[2018-04-25 13:30] LABS: PLATELET COUNT 216 10^3/uL (150-400)
[2018-04-25 13:39] LABS: INR 0.88 (0.83-1.16); PROTIME(PATIENT) 12.2 SEC (12.0-15.0)
[2018-04-25] MEDS ORDERED: DIAZEPAM 5 MG/ML 1 ML SYR IVP ONE (14:21)
[2018-04-25] MEDS ORDERED: KETOROLAC 15 MG/1 ML SDV IVP ONE (14:44)
[2018-04-25 14:49] VITALS: BP 190/80
== END 2018-04-25 16:23 | disposition home or self-care (01) ==
DX: N20.0 Calculus of kidney (principal); E86.9 Volume depletion, unspecified; J44.9 Chronic obstructive pulmonary disease, unspecified; Z79.82 Long term (current) use of aspirin; Z87.891 Personal history of nicotine dependence
CPT/HCPCS: 96374; J1170; J1885; J2405; J3360

== ENCOUNTER 2018-07-27 19:46 | Inpatient (IN) | payer OTHER, BC ==
[2018-07-27] MEDS ORDERED: NS 1,200 ML IV ONE (20:26)
[2018-07-27] MEDS ORDERED: AZITHROMYCIN IV 500 MG in D5W 250 ML IV ONE (20:26)
--- NOTE | 2018-07-27 20:29 | EDPHY ---
HPI/HX/ROS/PE/MDM Narrative: CHIEF COMPLAINT: "I've got pneumonia;" weakness HPI: The patient is an 78 y/o female recently diagnosed with pneumonia who arrives with her son complaining of significant weakness causing difficulty functioning at home. She has being feeling poor for a few days and today [facility] came to her home to perform a chest x-ray and flu swab. The chest x-ray showed LLL pneumonia and the flu swab was negative. She received IV fluids and seemed to improve for a few hours. She was prescribed doxycycline, though it's unclear if she's taken a dose yet. When her son returned to check on her this evening around 18:30, the patient was so weak "I couldn't stand up" and she doesn't "feel like I can get up and get around the house." She normally only requires O2 at night, but has used it during the day today. She denies abdominal pain, vomiting, diarrhea, urinary symptoms, fever. REVIEW OF SYSTEMS: A comprehensive 10 system review of systems is otherwise negative aside from elements mentioned in the history of present illness. 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 Son at bedside. . PHYSICAL EXAM: General:Patient is alert, in no acute distress. Hypoxemic at 84%. ENT:Eyes are normal to inspection. ENT inspection normal. Neck: Normal inspection. Full range of motion. Respiratory:No respiratory distress. Breath sounds normal bilaterally. Cardiovascular: Regular rate and rhythm. Strong peripheral pulses. Normal cap refill. Abdomen:The abdomen is nontender to palpation. There are no peritoneal signs. Back: Normal to inspection. No tenderness to palpation. Skin: Normal color. No rash. Warm and dry. Extremities: Normal appearance. Full range of motion. Neuro: Oriented x3. Normal motor function. Normal sensory function. ED Course: This is an 78 y/o female with a history of COPD and anemia with a recent diagnosis of LLL pneumonia today who presents with weakness and difficulty functioning at home secondary to this. She is hypoxemic at 84%. I've recommended admission, which she agrees to. Plan for IV, labs including cultures and respiratory pathogen panel, chest x-ray, and symptomatic care. 500mg IV azithromycin, 1gm IV Ceftriaxone, and 1L IV NS ordered. WBC elevated at 26. Chest x-ray shows LLL pneumonia. Reassessed patient and discussed findings. Spoke with hospitalist service. Dr. Hylton accepts admission. - Data Points Imaging Results: Imaging Impressions Chest X-Ray 07/27/18 20:18 Impression: Interval development of left retrocardiac pleuroparenchymal consolidation since 11/29/2017. Imaging: I viewed and interpreted images myself Laboratory Results: Laboratory Results 07/27/18 20:20 07/27/18 20:20 07/27/18 07/27/18 07/27/18 20:20 20:20 20:20 WBC 26.01 10^3/uL H 10^3/uL (3.80-9.50) RBC 3.87 10^6/uL L 10^6/uL (4.18-5.33) Hgb 12.1 g/dL L g/dL (12.6-16.3) Hct 34.8 % L % (38.0-47.0) MCV 89.9 fL fL (81.5-99.8) MCH 31.3 pg pg (27.9-34.1) MCHC 34.8 g/dL g/dL (32.4-36.7) RDW 13.9 % % (11.5-15.2) Plt Count 211 10^3/uL 10^3/uL (150-400) MPV 9.3 fL fL (8.7-11.7) Neut % (Auto) Not Reported Lymph % (Auto) Not Reported Humphreys % (Auto) Not Reported Eos % (Auto) Not Reported Baso % (Auto) Not Reported Nucleat RBC Rel Count Not Reported Absolute Neuts (auto) Not Reported Absolute Lymphs (auto) Not Reported Absolute Monos (auto) Not Reported Absolute Eos (auto) Not Reported Absolute Basos (auto) Not Reported Absolute Nucleated RBC Not Reported Immature Gran % Not Reported Seg Neutrophils % 87.0 % % Band Neutrophils % 6.0 % % Lymphocytes % 1.0 % % Monocytes % 6.0 % % Eosinophils % 0.0 % % Basophils % 0.0 % % Metamyelocytes % 0.0 % % Myelocytes % 0.0 % % Promyelocytes % 0.0 % % Blast Cells % 0.0 % % Immature Gran # Not Reported Absolute Seg Neuts 22.63 10^3/uL H 10^3/uL (1.70-6.50) Absolute Band Neuts 1.56 10^3/uL H 10^3/uL (0.00-0.70) Absolute Lymphocytes 0.26 10^3/uL L 10^3/uL (1.00-3.00) Absolute Monocytes 1.56 10^3/uL H 10^3/uL (0.30-0.80) Absolute Eosinophils 0.00 10^3/uL L 10^3/uL (0.03-0.40) Absolute Basophils 0.00 10^3/uL L 10^3/uL (0.02-0.10) Absolute Metamyelocyte 0.00 10^3/mL 10^3/mL (0.00-0.00) Absolute Myelocytes 0.00 10^3/mL 10^3/mL (0.00-0.00) Absolute Promyelocytes 0.00 10^3/uL 10^3/uL (0.00-0.00) Absolute Plasma Cells 0.00 10^3/uL 10^3/uL (0.00-0.00) Nucleated RBCs 0 /100 WBC /100 WBC (0-0) RBC/WBC/PLT Morphology NORMAL (NORMAL) Absolute Blast Cells 0.00 10^3/uL 10^3/uL (0.00-0.00) Plasma Cells % 0.0 % % Platelet Estimate ADEQUATE (ADEQ) VBG Lactic Acid 1.6 mmol/L mmol/L (0.7-2.1) Sodium 131 mEq/L L mEq/L (135-145) Potassium 3.1 mEq/L L mEq/L (3.3-5.0) Chloride 97 mEq/L mEq/L (97-110) Carbon Dioxide 23 mEq/l mEq/l (22-31) Anion Gap 11 mEq/L mEq/L (6-14) BUN 25 mg/dL H mg/dL (7-23) Creatinine 0.6 mg/dL mg/dL (0.6-1.0) Estimated GFR > 60 Glucose 111 mg/dL H mg/dL (70-100) Calcium 8.9 mg/dL mg/dL (8.5-10.4) Medications Given: Discontinued Medications Azithromycin 500 mg/ Dextrose 255 mls @ 255 mls/hr IV EDNOW ONE PRN Reason: Protocol Stop: 07/27/18 21:25 Last Admin: 07/27/18 21:14 Dose: 255 mls Ceftriaxone Sodium/Dextrose (Rocephin 1 Gm (Premix)) 50 mls @ 100 mls/hr IV EDNOW ONE PRN Reason: Protocol Stop: 07/27/18 20:55 Last Admin: 07/27/18 20:34 Dose: 50 mls Sodium Chloride (Ns) 1,200 mls @ 2,400 mls/hr 30 ml/kg infuse over 30 min ( 1200 ml) IV EDNOW ONE PRN Reason: Protocol Stop: 07/27/18 20:55 Last Admin: 07/27/18 20:33 Dose: 1,200 mls General Time Seen by Provider: 07/27/18 20:17 Initial Vital Signs: Initial Vital Signs Temperature (C) 37.8 C 07/27/18 19:59 Heart Rate 84 07/27/18 19:59 Respiratory Rate 16 07/27/18 19:59 Blood Pressure 119/59 L 07/27/18 19:59 O2 Sat (%) 84 L 07/27/18 19:59 O2 Delivery Mode Nasal Cannula O2 (L/minute) 3 Allergies/Adverse Reactions: hydrocodone Allergy (Intermediate, Verified 07/27/18 19:57) Other-Enter Comments Home Medications: Medication Instructions Recorded Acetaminophen [Tylenol ES 500 mg 500 - 1,000 mg PO BID PRN 11/29/17 (*)] Aspirin [Aspirin 81mg (*)] 81 mg PO DAILY 11/29/17 Bimatoprost 0.01% [Lumigan 0.01% 1 drops LEFTEYE DAILY@204411/29/17 (*)] Brimonidine 0.15% [Alphagan P 1 drops EACHEYE BID@11/29/17 0.15%] Denosumab [Prolia] 60 mg SQ .Q6MOS 11/29/17 Dextran 70/Hypromellose [Genteal 1 drop RTEYE BID PRN 11/29/17 Tears 0.1%-0.3% Drop] Eylea 1 dose [id number] .[id number] 11/29/17 Fexofenadine HCl [Nadia Allergy] 180 mg PO DAILY 11/29/17 Gabapentin [Neurontin 100 MG (*)] 100 mg PO BID@08,16 11/29/17 Gabapentin [Neurontin 300 MG (*)] 300 mg PO HS 11/29/17 Ganciclovir [Zirgan] 1 gm OP DAILY PRN 11/29/17 Ibuprofen [Motrin (*)] 400 mg PO TID PRN 11/29/17 Nicotine Polacrilex [Nicorette gum 2 mg PO BID PRN 11/29/17 (*)] Nicotine [Nicoderm Cq 14 mg (*)] 14 mg TD DAILY 11/29/17 Polyethylene Glycol 3350 [Miralax 17 gm PO HS 11/29/17 17 gm (*)] Potassium Cl [Klor-Con 20 meq (*)] 20 meq PO BID 11/29/17 Sennosides [Senna Lax] 3 tab PO DAILY PRN 11/29/17 Vit A/Vit C/Vit E/Zinc/Copper 1 each PO BID 11/29/17 [Preservision Areds Tablet] aMILoride/HYDROCHLOROTHIAZIDE 1 tab PO DAILY 11/29/17 [Amiloride HCl-Hctz 5-50 mg Tab] amLODIPine BESYLATE [Norvasc 2.5 2.5 mg PO DAILY 11/29/17 mg (*)] traMADol [Ultram 50 mg (*)] 50 mg PO TID 11/29/17 valACYclovir [Valtrex (*)] 1,000 mg PO DAILY PRN 11/29/17 Departure - Departure Disposition: [facility] Inpatient Acute Clinical Impression: Pneumonia Qualifiers: Pneumonia type: due to unspecified organism Laterality: left Lung location: lower lobe of lung Qualified Code(s): J18.1 - Lobar pneumonia, unspecified organism Condition: Fair Report Scribed for: Leif Fernandez Report Scribed by: Jessica Shaffer Date of Report: 07/27/18 Time of Report: 20:21 Physician Review and Approval Statement: Portions of this note were transcribed by an ED scribe. I personally performed the history, physical exam, and medical decision making; and confirm the accuracy of the information in the transcribed note.
[2018-07-27 20:35] LABS: PLATELET COUNT 211 10^3/uL (150-400)
[2018-07-27] MEDS ORDERED: oxyCODONE IR 5 MG TAB PO PRN (22:14)
[2018-07-27] MEDS ORDERED: PROMETHAZINE HCL 25 MG/ML INJ IVP PRN (22:14)
[2018-07-27] MEDS ORDERED: ONDANSETRON 4 MG/2 ML VIAL IVP PRN (22:14)
[2018-07-27] MEDS ORDERED: HYDROCODONE/APAP 5/325 TAB PO PRN (22:14)
[2018-07-27] MEDS ORDERED: ALBUTEROL 3 ML DEYVIAL IH PRN (22:14)
[2018-07-27] MEDS ORDERED: ONDANSETRON DISINTEGRATING 4 MG TAB PO PRN (22:14)
[2018-07-27] MEDS ORDERED: IBUPROFEN 200 MG TAB PO PRN (22:16)
[2018-07-27] MEDS ORDERED: NICOTINE POLACRILEX 2 MG GUM B PRN (22:16)
[2018-07-27] MEDS ORDERED: valACYclovir 500 MG TAB PO PRN (22:16)
[2018-07-27] MEDS ORDERED: GANCICLOVIR OP PRN (22:16)
[2018-07-27] MEDS ORDERED: ZOLPIDEM TARTRATE 5 MG TAB PO PRN (22:18)
--- NOTE | 2018-07-27 22:28 | PDGENHP ---
History and Physical - Chief Complaint sob/cough - History of Present Illness Patient is an 78 year old F with hx of COPD and nocturnal hypoxia who presents with a couple of days of worsening sob, cough and generalized fatigue. She notes that for the last couple of months she has noted increased sputum production and thickened sputum. It is sometimes dark. The last couple of days however she became much more short of breath and sick feeling, so bad that today she really could not walk or get out of bed. She denies any chest pain, she has not had swelling or pain in her legs. She has had subjective fever at home. She was placed on oral doxy for a presumed pna by [facility] yesterday but when her sxs continued to worsen she came to ER for further evaluation. History Information - Allergies/Home Medication List Allergies/Adverse Reactions: hydrocodone Allergy (Intermediate, Verified 07/27/18 19:57) Other-Enter Comments Home Medications: Acetaminophen [Tylenol ES 500 mg (*)] 500 - 1,000 mg PO BID PRN 11/29/17 [Last Taken 07/27/18 08:00] Aspirin [Aspirin 81mg (*)] 81 mg PO DAILY 11/29/17 [Last Taken 07/27/18 08:00] Bimatoprost 0.01% [Lumigan 0.01% (*)] 1 drops LEFTEYE DAILY@204411/29/17 [Last Taken 07/27/18 20:00] Brimonidine 0.15% [Alphagan P 0.15%] 1 drops EACHEYE BID@11/29/17 [ Last Taken 07/27/18 20:00] Denosumab [Prolia] 60 mg SQ .Q6MOS 11/29/17 [Last Taken 02/11/18] Dextran 70/Hypromellose [Genteal Tears 0.1%-0.3% Drop] 1 drop RTEYE BID PRN 12/14 [Last Taken 07/27/18 10:00] Eylea 1 dose [id number] 11/29/17 [Last Taken 04/23/18] Fexofenadine HCl [Nadia Allergy] 180 mg PO DAILY 11/29/17 [Last Taken 11/29/17 ] Gabapentin [Neurontin 100 MG (*)] 100 mg PO BID@11/29/17 [Last Taken 07/27 08:00] Gabapentin [Neurontin 300 MG (*)] 300 mg PO HS 11/29/17 [Last Taken 07/26/18 21: 00] Ganciclovir [Zirgan] 1 gm OP DAILY PRN 11/29/17 [Last Taken Unknown] Ibuprofen [Motrin (*)] 400 mg PO TID PRN 11/29/17 [Last Taken Unknown] Nicotine Polacrilex [Nicorette gum (*)] 2 mg PO BID PRN 11/29/17 [Last Taken 12/14] Nicotine [Nicoderm Cq 14 mg (*)] 14 mg TD DAILY 11/29/17 [Last Taken 11/29/17] Polyethylene Glycol 3350 [Miralax 17 gm (*)] 17 gm PO HS 11/29/17 [Last Taken 21:00] Potassium Cl [Klor-Con 20 meq (*)] 20 meq PO BID 11/29/17 [Last Taken 07/27/18 08:00] Sennosides [Senna Lax] 3 tab PO DAILY PRN 11/29/17 [Last Taken Unknown] Vit A/Vit C/Vit E/Zinc/Copper [Preservision Areds Tablet] 1 each PO BID [Last Taken 07/27/18 08:00] aMILoride/HYDROCHLOROTHIAZIDE [Amiloride HCl-Hctz 5-50 mg Tab] 1 tab PO DAILY [Last Taken 07/27/18 08:00] amLODIPine BESYLATE [Norvasc 2.5 mg (*)] 2.5 mg PO DAILY 11/29/17 [Last Taken 08:00] traMADol [Ultram 50 mg (*)] 50 mg PO TID 11/29/17 [Last Taken 07/27/18 08:00] valACYclovir [Valtrex (*)] 1,000 mg PO DAILY PRN 11/29/17 [Last Taken 07/27/18 08:00] I have personally reviewed and updated: family history, medical history, social history - Past Medical History COPD, hypertension Additional medical history: nocturnal hypoxia. colonic AVM with GI bleed. glaucoma. macular degeneration. chronic pericarditis - Surgical History Reports: no pertinent surgical hx - Family History Positive for: non-pertinent - Social History Smoking Status: Former smoker Alcohol Use: Rarely Drug Use: None Additional social history: , lives independently Review of Systems Review of Systems: ROS: 10pt was reviewed & negative except for what was stated in HPI & below Physical Exam Physical Exam: Temp Pulse Resp BP Pulse Ox 37 C 100 30 H 96/70 L 96 07/27/18 20:56 07/27/18 22:00 07/27/18 22:00 07/27/18 22:00 07/27/18 22:00 O2 (L/minute) 3 Constitutional: no apparent distress, chronically ill appearing Eyes: PERRL, anicteric sclera Ears, Nose, Mouth, Throat: moist mucous membranes, hearing normal Cardiovascular: regular rate and rhythym, no murmur, rub, or gallop, No edema Respiratory: no respiratory distress, reduced air movement (L> R), expiratory wheeze, bronchial breath sounds Gastrointestinal: normoactive bowel sounds, soft, non-tender abdomen Genitourinary: no bladder tenderness Skin: warm, normal color Musculoskeletal: no muscle tenderness Neurologic: AAOx3 Psychiatric: interacting appropriately, not anxious, not encephalopathic Lab Data & Imaging Review 07/27/18 20:20 07/27/18 20:20 WBC 26.01 10^3/uL (3.80-9.50) H 07/27/18 20:20 RBC 3.87 10^6/uL (4.18-5.33) L 07/27/18 20:20 Hgb 12.1 g/dL (12.6-16.3) L 07/27/18 20:20 Hct 34.8 % (38.0-47.0) L 07/27/18 20:20 MCV 89.9 fL (81.5-99.8) 07/27/18 20:20 MCH 31.3 pg (27.9-34.1) 07/27/18 20:20 MCHC 34.8 g/dL (32.4-36.7) 07/27/18 20:20 RDW 13.9 % (11.5-15.2) 07/27/18 20:20 Plt Count 211 10^3/uL (150-400) 07/27/18 20:20 MPV 9.3 fL (8.7-11.7) 07/27/18 20:20 Neut % (Auto) Not Reported 07/27/18 20:20 Lymph % (Auto) Not Reported 07/27/18 20:20 Mcmullen % (Auto) Not Reported 07/27/18 20:20 Eos % (Auto) Not Reported 07/27/18 20:20 Baso % (Auto) Not Reported 07/27/18 20:20 Nucleat RBC Rel Count Not Reported 07/27/18 20:20 Absolute Neuts (auto) Not Reported 07/27/18 20:20 Absolute Lymphs (auto) Not Reported 07/27/18 20:20 Absolute Monos (auto) Not Reported 07/27/18 20:20 Absolute Eos (auto) Not Reported 07/27/18 20:20 Absolute Basos (auto) Not Reported 07/27/18 20:20 Absolute Nucleated RBC Not Reported 07/27/18 20:20 Immature Gran % Not Reported 07/27/18 20:20 Seg Neutrophils % 87.0 % 07/27/18 20:20 Band Neutrophils % 6.0 % 07/27/18 20:20 Lymphocytes % 1.0 % 07/27/18 20:20 Monocytes % 6.0 % 07/27/18 20:20 Eosinophils % 0.0 % 07/27/18 20:20 Basophils % 0.0 % 07/27/18 20:20 Metamyelocytes % 0.0 % 07/27/18 20:20 Myelocytes % 0.0 % 07/27/18 20:20 Promyelocytes % 0.0 % 07/27/18 20:20 Blast Cells % 0.0 % 07/27/18 20:20 Immature Gran # Not Reported 07/27/18 20:20 Absolute Seg Neuts 22.63 10^3/uL (1.70-6.50) H 07/27/18 20:20 Absolute Band Neuts 1.56 10^3/uL (0.00-0.70) H 07/27/18 20:20 Absolute Lymphocytes 0.26 10^3/uL (1.00-3.00) L 07/27/18 20:20 Absolute Monocytes 1.56 10^3/uL (0.30-0.80) H 07/27/18 20:20 Absolute Eosinophils 0.00 10^3/uL (0.03-0.40) L 07/27/18 20:20 Absolute Basophils 0.00 10^3/uL (0.02-0.10) L 07/27/18 20:20 Absolute Metamyelocyte 0.00 10^3/mL (0.00-0.00) 07/27/18 20:20 Absolute Myelocytes 0.00 10^3/mL (0.00-0.00) 07/27/18 20:20 Absolute Promyelocytes 0.00 10^3/uL (0.00-0.00) 07/27/18 20:20 Absolute Plasma Cells 0.00 10^3/uL (0.00-0.00) 07/27/18 20:20 Nucleated RBCs 0 /100 WBC (0-0) 07/27/18 20:20 RBC/WBC/PLT Morphology NORMAL (NORMAL) 07/27/18 20:20 Absolute Blast Cells 0.00 10^3/uL (0.00-0.00) 07/27/18 20:20 Plasma Cells % 0.0 % 07/27/18 20:20 Platelet Estimate ADEQUATE (ADEQ) 07/27/18 20:20 VBG Lactic Acid 1.6 mmol/L (0.7-2.1) 07/27/18 20:20 Sodium 131 mEq/L (135-145) L 07/27/18 20:20 Potassium 3.1 mEq/L (3.3-5.0) L 07/27/18 20:20 Chloride 97 mEq/L (97-110) 07/27/18 20:20 Carbon Dioxide 23 mEq/l (22-31) 07/27/18 20:20 Anion Gap 11 mEq/L (6-14) 07/27/18 20:20 BUN 25 mg/dL (7-23) H 07/27/18 20:20 Creatinine 0.6 mg/dL (0.6-1.0) 07/27/18 20:20 Estimated GFR > 60 07/27/18 20:20 Glucose 111 mg/dL (70-100) H 07/27/18 20:20 Calcium 8.9 mg/dL (8.5-10.4) 07/27/18 20:20 Visualized and Interpreted Chest x-ray results: Yes Chest X-Ray results: infiltrate (left basilar) Assessment & Plan Assessment: Pneumonia (Acute) 78 yo F with hx of COPD and nocturnal hypoxia presenting with sob/cough/ weakness in setting of LLL PNA # LLL PNA: noted on CXR, patient started on ctx/azithro which will be continued , cultures pending as are viral pcr # acute on chronic hypoxic respiratory failure: at baseline only requires o2 at night, currently on 3L to maintain o2 sats > 90%, 2/2 above # sepsis: WBC of 26K, increased RR and relative hypotension. Lactate wnl, in the setting of pna as above. Abx started, cultures pending, monitoring # copd with acute exacerbation: in the setting of pna, exacerbation relatively mild with decreased air movement largely only over pna, otherwise only mild wheeze, will start nebs scheduled, will hold off on steroids for now # htn: currently mildly hypotensive, will hold home BP meds # hyponatremia: likely 2/2 volume depletion, IVF overnight and monitor # hypokalemia: will replete with electrolyte protocol # anemia: slightly lower than baseline, no c/o to suggest bleeding, will trend # general weakness: suspect largely due to pna, will ask pt/ot to eval # IP status, will require > 48 hours stay for eval/mgmt of above Patient new to my care. Old records reviewed and summarized as above. Care plan reviewed with ER doctor including plans for abx.
[2018-07-27] MEDS ORDERED: PROTOCOL MAGNESIUM 1 DOSE IV PRN (22:34)
[2018-07-27] MEDS ORDERED: PROTOCOL POTASSIUM 1 DOSE MISC PRN (22:34)
[2018-07-27] MEDS: GABAPENTIN 300 MG CAP PO SCH (22:57)
[2018-07-27] MEDS: NS 1,000 ML IV SCH (22:58)
[2018-07-27] MEDS: traMADol 50 MG TAB PO SCH (23:43)
[2018-07-28 05:02] LABS: PLATELET COUNT 195 10^3/uL (150-400)
[2018-07-28] MEDS: IPRATROPIUM/ALBUTEROL 3 ML DEYVIAL IH SCH ×4 (05:18→20:43)
[2018-07-28] MEDS ORDERED: POTASSIUM CL 10 MEQ TAB PO ONE ×2 (07:11→10:02)
--- NOTE | 2018-07-28 08:09 | PDMN ---
Medical Necessity Medical necessity: MCG: M282 cPNA: increased SOB, cough, gen. fatigue increased sputum production, unable to get out of bed, fever, CXR shows LLL pna, sepsis with wbc 26K, increased RR, hypotension, , COPD exacerbation decreased air movement, wheezing, hyponatremia, hypokalemia, anemia, generalized weakness, PT/OT ordered. PMH COPD, nocturnal hypoxia, currently on 3L O2,( 84% RA) anticipate > 2 MN ongoing med nec care, further eval and tx.
[2018-07-28] MEDS ORDERED: ENOXAPARIN 40 MG/0.4 ML SYR SC SCH (09:00)
[2018-07-28] MEDS: BRIMONIDINE 0.15% 5 ML OPHT.BTL EACHEYE SCH ×2 (09:03→21:30)
[2018-07-28] MEDS: NICOTINE 14 MG/24 HR PATCH TD SCH (09:40)
[2018-07-28] MEDS: PRESERVISION AREDS2 FORMULA EYE VIT 1 EACH PO SCH ×2 (09:43→21:28)
[2018-07-28] MEDS: traMADol 50 MG TAB PO SCH ×3 (09:43→21:28)
[2018-07-28] MEDS: CETIRIZINE 10 MG TAB PO SCH (09:43)
[2018-07-28] MEDS: ASPIRIN 81 MG CHEWABLE TAB PO SCH ×2 (09:43→09:49)
[2018-07-28] MEDS: GABAPENTIN 100 MG CAP PO SCH ×2 (09:43→16:31)
[2018-07-28] MEDS: ENOXAPARIN 30 MG/0.3 ML SYR SC SCH (09:48)
[2018-07-28] MEDS: ACETAMINOPHEN 325 MG TAB PO PRN (10:11)
[2018-07-28] MEDS: guaiFENesin 600 MG TAB.ER PO SCH ×2 (10:11→21:28)
[2018-07-28] MEDS: AZITHROMYCIN IV 500 MG in NS 250 ML IV SCH (10:19)
[2018-07-28] MEDS: TEARS/DEXTRAN 70/HYPROMELLOSE 15 ML OPHT.BTL RTEYE PRN (10:59)
[2018-07-28] MEDS ORDERED: MAGNESIUM SULF 1 GM/DEXTROSE 100 ML IV ONE (12:29)
--- NOTE | 2018-07-28 13:57 | HOSPPROG ---
Hospitalist Progress Note Assessment/Plan: 78 yo F with hx of COPD and nocturnal hypoxia presenting with sob/cough/ weakness in setting of LLL PNA. First encounter, chart reviewed. # LLL PNA: -noted on CXR, -patient started on ctx/azithro which will be continued, -cultures pending -viral pcr negative # acute on chronic hypoxic respiratory failure: -at baseline only requires o2 at night, -currently on 2L to maintain o2 sats > 90%, 2/2 above # sepsis: -WBC of 26K, increased RR and relative hypotension. # copd with acute exacerbation: -in the setting of pna, exacerbation relatively mild with decreased air movement largely only over pna, -only mild wheeze, will start nebs scheduled, will hold off on steroids for now # htn: -currently mildly hypotensive, will hold home BP meds # hyponatremia: -likely 2/2 volume depletion, IVF overnight and monitor # hypokalemia: -will replete with electrolyte protocol # anemia: -slightly lower than baseline, no c/o to suggest bleeding, will trend # general weakness: -suspect largely due to pna, will ask pt/ot to eval # IP status, will require > 48 hours stay for eval/mgmt of above labs in am follow o2 PT/OT Subjective: Still feeling weak. No other issues. Still coughing. Objective: Vital Signs Temp Pulse Resp BP Pulse Ox 36.9 C 90 18 94/49 L 93 07/28/18 11:52 07/28/18 11:52 07/28/18 11:52 07/28/18 11:52 07/28/18 11:52 Microbiology 07/27/18 22:10 Respiratory Panel (PCR) - Final Nasal, Sinus - Swab No Organism Detected Laboratory Results 07/28/18 04:11 07/28/18 04:11 07/27/18 07/28/18 07/29/18 05:59 05:59 05:59 Intake Total 2150 Output Total 400 5 Balance 1750 -5 - Physical Exam Constitutional: chronically ill appearing, uncomfortable, cachectic Eyes: PERRL, anicteric sclera, EOMI Ears, Nose, Mouth, Throat: moist mucous membranes, hearing normal, ears appear normal Cardiovascular: No JVD, No tachycardia, No edema Respiratory: no respiratory distress, reduced air movement, expiratory wheeze Gastrointestinal: normoactive bowel sounds, No tenderness, No ascites Skin: warm, normal color, No mottled Musculoskeletal: normal joint ROM, no joint effusions, generalized weakness Neurologic: AAOx3 Psychiatric: interacting appropriately, not anxious, not encephalopathic, poor insight, poor memory ICD10 Worksheet Patient Problems: Problems Problem Status Onset Iron deficiency anemia Acute Anemia Acute Pneumonia Acute
--- NOTE | 2018-07-28 14:46 | ASMTCMCOM ---
CM Note CM Note Notes: Pt is a 78 y/o man admitted for PNA. CM spoke to RICARDO Borrero regarding d/c POC. PT is recommending SNF. CM spoke to pts Akin on the phone. Akin would like referals made to [facility]. Akin' first choice [facility]. Akin reports that he had a neighbor go to [facility] and had a good experience. Akin reports that he is having back surgery on 08/03 and will not be able to take care of pt.. Referrals sent. CM to follow. Plan: SNF Date Signed: 07/28/2018 02:45 PM Electronically Signed By:CALIXTO Hampton
[2018-07-28] MEDS: NS 1,000 ML IV SCH (17:12)
[2018-07-28] MEDS: GABAPENTIN 300 MG CAP PO SCH (21:28)
[2018-07-28] MEDS: POLYETHYLENE GLYCOL 3350 17 GM PKT PO SCH (21:28)
[2018-07-28] MEDS: BIMATOPROST 0.01% 2.5 ML OPHT.BTL LEFTEYE SCH (21:30)
[2018-07-28] MEDS ORDERED: POTASSIUM CL 20 MEQ TAB PO ONE (22:00)
[2018-07-29] MEDS: ACETAMINOPHEN 325 MG TAB PO PRN ×2 (00:03→15:20)
[2018-07-29] MEDS: NS 1,000 ML IV SCH (08:00)
[2018-07-29] MEDS: GABAPENTIN 100 MG CAP PO SCH ×2 (08:09→16:02)
[2018-07-29] MEDS: traMADol 50 MG TAB PO SCH ×3 (08:09→22:12)
[2018-07-29] MEDS: CETIRIZINE 10 MG TAB PO SCH (08:10)
[2018-07-29] MEDS: PRESERVISION AREDS2 FORMULA EYE VIT 1 EACH PO SCH ×2 (08:10→22:12)
[2018-07-29] MEDS: guaiFENesin 600 MG TAB.ER PO SCH ×2 (08:10→22:12)
[2018-07-29] MEDS: IPRATROPIUM/ALBUTEROL 3 ML DEYVIAL IH SCH ×5 (08:15→20:27)
[2018-07-29] MEDS: ASPIRIN 81 MG CHEWABLE TAB PO SCH (08:21)
[2018-07-29] MEDS: BRIMONIDINE 0.15% 5 ML OPHT.BTL EACHEYE SCH (09:00)
[2018-07-29] MEDS: TEARS/DEXTRAN 70/HYPROMELLOSE 15 ML OPHT.BTL RTEYE PRN (10:07)
[2018-07-29] MEDS: AZITHROMYCIN IV 500 MG in NS 250 ML IV SCH (10:39)
[2018-07-29] MEDS: ENOXAPARIN 30 MG/0.3 ML SYR SC SCH (10:40)
[2018-07-29] MEDS: NICOTINE 14 MG/24 HR PATCH TD SCH (10:50)
--- NOTE | 2018-07-29 12:58 | HOSPPROG ---
Hospitalist Progress Note Assessment/Plan: 78 yo F with hx of COPD and nocturnal hypoxia presenting with sob/cough/ weakness in setting of LLL PNA. # LLL PNA: -noted on CXR, -patient started on ctx/azithro which will be continued, -cultures ntd -viral pcr negative # acute on chronic hypoxic respiratory failure: -at baseline only requires o2 at night, -currently on 1.5L to maintain o2 sats > 90%, 2/2 above -consider CT scan chest if not improving # sepsis: -WBC of 26K on admission -resolved # copd with acute exacerbation: -in the setting of pna, exacerbation relatively mild with decreased air movement largely only over pna, -only mild wheeze, will start nebs scheduled, will hold off on steroids for now # htn: -restart home meds # hyponatremia: -likely 2/2 volume depletion, -better # hypokalemia: -will replete with electrolyte protocol -resolved # anemia: -slightly lower than baseline, no c/o to suggest bleeding, will trend # general weakness: -suspect largely due to pna -pt/ot to eval # IP status, will require > 48 hours stay for eval/mgmt of above supportive care follow o2 PT/OT Subjective: Still feeling weak and tired. SOB better but cont coughing. Objective: Vital Signs Temp Pulse Resp BP Pulse Ox 36.6 C 102 H 18 125/71 H 93 07/29/18 12:00 07/29/18 12:00 07/29/18 12:00 07/29/18 12:00 07/29/18 12:00 Laboratory Results 07/28/18 14:14 07/29/18 04:29 07/28/18 07/29/18 07/30/18 05:59 05:59 05:59 Intake Total 2150 2393 Output Total 400 705 300 Balance 1750 1688 -300 - Physical Exam Constitutional: chronically ill appearing, cachectic Eyes: PERRL, anicteric sclera Ears, Nose, Mouth, Throat: moist mucous membranes, hearing normal Cardiovascular: No JVD, No edema Respiratory: no respiratory distress, reduced air movement Gastrointestinal: No tenderness, No ascites Skin: warm, normal color Musculoskeletal: no joint effusions, generalized weakness Neurologic: AAOx3 Psychiatric: not anxious, not encephalopathic, thought process linear ICD10 Worksheet Patient Problems: Problems Problem Status Onset Iron deficiency anemia Acute Anemia Acute Pneumonia Acute
--- NOTE | 2018-07-29 15:59 | ASMTCMCOM ---
CM Note CM Note Notes: CM spoke to pts Akin on the phone. Akin went to tour [employer] today. Akin will tour [employer] tomorrow. Akin will let CM know what he ends up choosing. CM to follow. Plan: [facility] Date Signed: 07/29/2018 03:59 PM Electronically Signed By:CALIXTO Hampton
[2018-07-29] MEDS: POLYETHYLENE GLYCOL 3350 17 GM PKT PO SCH (22:11)
[2018-07-29] MEDS: POTASSIUM CL 20 MEQ TAB PO SCH (22:12)
[2018-07-29] MEDS: GABAPENTIN 300 MG CAP PO SCH (22:12)
[2018-07-29] MEDS: SENNOSIDES 1 TAB PO PRN (22:25)
[2018-07-30] MEDS: BIMATOPROST 0.01% 2.5 ML OPHT.BTL LEFTEYE SCH ×2 (01:04→20:20)
[2018-07-30] MEDS: BRIMONIDINE 0.15% 5 ML OPHT.BTL EACHEYE SCH ×3 (01:04→20:20)
[2018-07-30] MEDS: NS 1,000 ML IV SCH (03:54)
[2018-07-30] MEDS: IPRATROPIUM/ALBUTEROL 3 ML DEYVIAL IH SCH ×4 (05:18→21:00)
--- NOTE | 2018-07-30 08:24 | HOSPPROG ---
Hospitalist Progress Note Assessment/Plan: 78 yo F with hx of COPD and nocturnal hypoxia presenting with sob/cough/ weakness in setting of LLL PNA. Today is my first encounter with the patient, chart reviewed. 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 Objective: Vital Signs Temp Pulse Resp BP Pulse Ox 37.3 C 108 H 16 144/67 H 91 L 07/30/18 07:36 07/30/18 07:36 07/30/18 07:36 07/30/18 07:36 07/30/18 07:36 Laboratory Results 07/28/18 14:14 07/30/18 04:16 07/29/18 07/30/18 07/31/18 05:59 05:59 05:59 Intake Total 2393 2790 Output Total 705 1200 Balance 1688 1590 - Physical Exam Constitutional: not in pain, chronically ill appearing, other (thin) Eyes: PERRL Ears, Nose, Mouth, Throat: hearing normal Cardiovascular: regular rate and rhythym, tachycardia Respiratory: reduced air movement, expiratory wheeze (few scattered) Skin: warm Musculoskeletal: generalized weakness Neurologic: AAOx3 Psychiatric: interacting appropriately ICD10 Worksheet Patient Problems: Problems Problem Status Onset Pneumonia Acute Anemia Acute Iron deficiency anemia Acute
[2018-07-30] MEDS ORDERED: POTASSIUM CL 10 MEQ TAB PO ONE (08:35)
[2018-07-30] MEDS: AZITHROMYCIN IV 500 MG in NS 250 ML IV SCH (08:55)
[2018-07-30] MEDS: ENOXAPARIN 30 MG/0.3 ML SYR SC SCH (08:56)
[2018-07-30] MEDS: PRESERVISION AREDS2 FORMULA EYE VIT 1 EACH PO SCH ×2 (08:57→20:21)
[2018-07-30] MEDS: GABAPENTIN 100 MG CAP PO SCH ×2 (08:57→16:29)
[2018-07-30] MEDS: CETIRIZINE 10 MG TAB PO SCH (08:57)
[2018-07-30] MEDS: guaiFENesin 600 MG TAB.ER PO SCH ×2 (08:57→20:21)
[2018-07-30] MEDS: NICOTINE 14 MG/24 HR PATCH TD SCH (09:03)
[2018-07-30] MEDS: ASPIRIN 81 MG CHEWABLE TAB PO SCH (09:03)
[2018-07-30] MEDS: traMADol 50 MG TAB PO SCH ×3 (09:21→20:21)
[2018-07-30] MEDS: ACETAMINOPHEN 325 MG TAB PO PRN ×2 (09:22→16:30)
[2018-07-30] MEDS: POTASSIUM CL 20 MEQ TAB PO SCH ×2 (09:23→20:21)
[2018-07-30] MEDS ORDERED: IOPAMIDOL (ISOVUE 370) 100 ML BTL IV ONE (11:42)
[2018-07-30] MEDS ORDERED: LIDOCAINE 1% 5 ML SDV IF ONE (17:00)
--- NOTE | 2018-07-30 17:37 | PDCONSULT ---
Control Officer Note: ASSESSMENT AND PLAN 78-year-old female with significant smoking history admitted what appears to be post obstructive pneumonia and associated parapneumonic effusion due to a lung mass. The hypervascular mass like consolidation and patient's left lower lobe most likely represents malignancy. A smaller lesion was noted in the same area from a CT chest in 2015. Is possible that a dense consolidation from pneumonia may appear as a mass but this is less likely in her case. I discussed at length with her the possibility of malignancy and risks and benefits associated with diagnostic and therapeutic interventions. They understand that this is likely malignancy and do not want aggressive interventions. At this point we agreed to a diagnostic and therapeutic thoracentesis as this may improve her dyspnea as well as provided diagnosis both both for infection and malignancy. # parapneumonic effusion -diagnostic and therapeutic thoracentesis as above. May need small bore chest tube with tPA and DNase depending results. Given her frailty and goals of care I recommend against a surgical chest tube or VATS decortication at this point. # postobstructive pneumonia Due to tumor. - Okay to stop azithromycin continue ceftriaxone - if no clinical improvement after another 2-3 days may consider switching to Unasyn for more anaerobic coverage - anticipate discharging on Augmentin with prolonged course and follow up imaging as an outpatient # right lower lobe lung mass First noticed in [address] chest. High suspicion see for malignancy. - if the pleural fluid from thoracentesis is positive she would be stage IV - will defer biopsy until after infections adequately treated # acute hypoxemic respiratory failure V/Q mismatching and shunt from infection and mass in left lower lobe. Expect some interval improvement with treating infection over the coming days. Patient will likely need to be discharged with oxygen. Agree with not administering and corticosteroids # goals of care As per above. Continue discussions with patient and her Thank you for this consult. Please feel free to call with any questions or concerns Chief complaint Shortness of breath LILLIANA Matos is a very pleasant 78-year-old female with a longstanding history of COPD and nocturnal hypoxemic respiratory failure who presented to the ED with to 3 days of malaise, productive cough and fatigue as well as subjective fevers. She states over the past 2-3 months she has has gradually increasing sputum production. She denies hemoptysis. She has not been previously evaluated for this. She does state a remote history of apical blebs requiring a chest tube. She estimates of 25 years ago. She is a 50 60 pack-year history. She is no longer smoking. She denies chest pains, weight loss or weight gain, leg swelling, syncope, rash or hot or cold intolerance Allergies Hydrocodone Home medications cetaminophen [Tylenol ES 500 mg (*)] 500 - 1,000 mg PO BID PRN 11/29/17 [Last Taken 07/27/18 08:00] Aspirin [Aspirin 81mg (*)] 81 mg PO DAILY 11/29/17 [Last Taken 07/27/18 08:00] Bimatoprost 0.01% [Lumigan 0.01% (*)] 1 drops LEFTEYE DAILY@204411/29/17 [Last Taken 07/27/18 20:00] Brimonidine 0.15% [Alphagan P 0.15%] 1 drops EACHEYE BID@11/29/17 [ Last Taken 07/27/18 20:00] Denosumab [Prolia] 60 mg SQ .Q6MOS 11/29/17 [Last Taken 02/11/18] Dextran 70/Hypromellose [Genteal Tears 0.1%-0.3% Drop] 1 drop RTEYE BID PRN 12/14 [Last Taken 07/27/18 10:00] Eylea 1 dose INJ .[id number] 11/29/17 [Last Taken 04/23/18] Fexofenadine HCl [Nadia Allergy] 180 mg PO DAILY 11/29/17 [Last Taken 11/29/17 ] Gabapentin [Neurontin 100 MG (*)] 100 mg PO BID@,16 11/29/17 [Last Taken 07/27 08:00] Gabapentin [Neurontin 300 MG (*)] 300 mg PO HS 11/29/17 [Last Taken 07/26/18 21: 00] Ganciclovir [Zirgan] 1 gm OP DAILY PRN 11/29/17 [Last Taken Unknown] Ibuprofen [Motrin (*)] 400 mg PO TID PRN 11/29/17 [Last Taken Unknown] Nicotine Polacrilex [Nicorette gum (*)] 2 mg PO BID PRN 11/29/17 [Last Taken 12/14] Nicotine [Nicoderm Cq 14 mg (*)] 14 mg TD DAILY 11/29/17 [Last Taken 11/29/17] Polyethylene Glycol 3350 [Miralax 17 gm (*)] 17 gm PO HS 11/29/17 [Last Taken 21:00] Potassium Cl [Klor-Con 20 meq (*)] 20 meq PO BID 11/29/17 [Last Taken 07/27/18 08:00] Sennosides [Senna Lax] 3 tab PO DAILY PRN 11/29/17 [Last Taken Unknown] Vit A/Vit C/Vit E/Zinc/Copper [Preservision Areds Tablet] 1 each PO BID [Last Taken 07/27/18 08:00] aMILoride/HYDROCHLOROTHIAZIDE [Amiloride HCl-Hctz 5-50 mg Tab] 1 tab PO DAILY [Last Taken 07/27/18 08:00] amLODIPine BESYLATE [Norvasc 2.5 mg (*)] 2.5 mg PO DAILY 11/29/17 [Last Taken 08:00] traMADol [Ultram 50 mg (*)] 50 mg PO TID 11/29/17 [Last Taken 07/27/18 08:00] valACYclovir [Valtrex (*)] 1,000 mg PO DAILY PRN 11/29/17 [Last Taken 07/27/18 08:00] I have personally reviewed and updated: family history, medical history, social history Past medical history COPD, colonic AVM with GI bleed, glaucoma, macular degeneration, chronic pericarditis, scoliosis, chronic back pain Surgical history no pertinent surgical history Family history no family history of lung cancer Social history 50 60 pack-year history no longer smoking. Minimal alcohol use no recreational drug use, patient is and lives with Review of systems 10 point review of systems is reviewed and negative except as per HPI Physical exam Temperature 36.9 degrees, heart rate 86, blood pressure 112/63, respiratory rate 12, 91% on room air GEN: NAD, resting in bed NEURO: A&Ox3, CAM negative HEENT: EOMI, MMM, OP clear NECK: supple, trachea midline CHEST normal shape, no pes excavatum CVS: rrr no m/r/g PULM: Decreased breath sounds right base, no respiratory distress ABD: soft, NT, ND, NABS EXT: no swelling, no cyanosis, full ROM SKIN: warm, dry, intact, no rash PSYCH CAM negative, appropriate affect I reviewed and interpreted patient's laboratory data Significant for a leukocytosis and normal coags CT chest without PE, large hypervascular left lower lobe mass like consolidation with associated small to moderate parapneumonic effusion. Posterior segment of left lower lobe appears to be extrinsically compressed Dr. Vera asked me to evaluate this patient for respiratory failure pneumonia and possible malignancy
--- NOTE | 2018-07-30 17:56 | SUROPNOTE ---
[facility] Operative Report - Surgery Thoracentesis with ultrasound guidance Time: 1700 Date: 07/30/18 Location L hemithorax Indication: Parapneumonic effusion Guidance: Ultrasound Operators: Tony Anesthesiologist NA Anesthesia NA Medications 5 cc lidocaine 1% Implants none Consent Obtained and placed in chart Description of Procedure The patient was prepped and draped in the usual sterile fashion. Hand hygiene was performed. The site was selected as the optimal site for procedure, given considerations of sterility and safety. The left pleural effusion was visualized first under ultrasound, and the site for procedure was marked. The left posterior chest was prepped with Chloraprep prior to the procedure with maximal sterile precautions (including sterile gloves, mask, cap, and large sterile draping). Local anesthesia was obtained with 5 mL of lidocaine 1% without epinephrine. Next, a small skin incision was made with a scalpel blade. Using catheter over needle technique, the catheter was inserted into the pleural space with return of yellow pleural fluid. The catheter was advanced into the pleural space with withdrawal of the introducer needle. Via the three-way stopcock, approximately 60 mL of fluid was removed for testing. Next, suction tubing was connected to the three-way stopcock, and an additional 550 mL of fluid was removed. At this point, the procedure was completed, and the catheter was removed without incident. SpO2 was 92% at the end of the procedure. Post-procedure chest ultrasound did not reveal any immediate pneumothorax. Post-procedure CXR is pending. EBL: 0 mL Complications: 0 Fluid Removed: 610 mL of yellow appearing fluid. Sample sent for routine chemical, microbiologic and cytologic testing
[2018-07-30] MEDS: SENNOSIDES 1 TAB PO PRN (20:21)
[2018-07-30] MEDS: GABAPENTIN 300 MG CAP PO SCH (20:21)
[2018-07-30] MEDS: POLYETHYLENE GLYCOL 3350 17 GM PKT PO SCH (20:22)
[2018-07-31 05:30] LABS: PLATELET COUNT 277 10^3/uL (150-400)
[2018-07-31] MEDS: IPRATROPIUM/ALBUTEROL 3 ML DEYVIAL IH SCH ×4 (06:38→22:37)
--- NOTE | 2018-07-31 08:48 | HOSPPROG ---
Hospitalist Progress Note Assessment/Plan: 78 yo F with hx of COPD and nocturnal hypoxia presenting with sob/cough/ weakness in setting of LLL PNA. # LLL PNA, postobstructive -dc azithro, cont Ceftriaxone # acute on chronic hypoxic respiratory failure: -at baseline only requires o2 at night #Parapneumonic effusion -s/p 550 ml of fluid removed, cytology pending. 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 Updated the patient's , Rasheed ([phone]) about the plan of care. Subjective: Shawna is feeling better today, less work of breathing. Objective: Vital Signs Temp Pulse Resp BP Pulse Ox 37.1 C 98 16 113/60 89 L 07/31/18 07:33 07/31/18 07:33 07/31/18 07:33 07/31/18 07:33 07/31/18 07:33 Microbiology 07/30/18 17:10 Gram Stain - Final Pleural Fluid - Aspirate Laboratory Results 07/31/18 04:15 07/31/18 04:15 07/30/18 07/31/18 08/01/18 05:59 05:59 05:59 Intake Total 2790 350 Output Total 1200 900 Balance 1590 -550 - Physical Exam Constitutional: chronically ill appearing, other (thin) Eyes: PERRL Ears, Nose, Mouth, Throat: hearing normal Cardiovascular: regular rate and rhythym Respiratory: no respiratory distress, reduced air movement (mid to base on left lung, decreased at right lung base) Skin: warm, No normal color (pale) Musculoskeletal: generalized weakness Neurologic: AAOx3 Psychiatric: interacting appropriately ICD10 Worksheet Patient Problems: Problems Problem Status Onset Pneumonia Acute Anemia Acute Iron deficiency anemia Acute
[2018-07-31] MEDS: ENOXAPARIN 30 MG/0.3 ML SYR SC SCH (09:12)
[2018-07-31] MEDS: guaiFENesin 600 MG TAB.ER PO SCH ×2 (09:13→21:48)
[2018-07-31] MEDS: PRESERVISION AREDS2 FORMULA EYE VIT 1 EACH PO SCH ×2 (09:14→21:47)
[2018-07-31] MEDS: ACETAMINOPHEN 325 MG TAB PO PRN ×2 (09:14→16:00)
[2018-07-31] MEDS: GABAPENTIN 100 MG CAP PO SCH ×2 (09:15→15:55)
[2018-07-31] MEDS: POTASSIUM CL 20 MEQ TAB PO SCH ×2 (09:15→21:47)
[2018-07-31] MEDS: traMADol 50 MG TAB PO SCH ×3 (09:15→21:48)
[2018-07-31] MEDS: CETIRIZINE 10 MG TAB PO SCH (09:16)
[2018-07-31] MEDS: BRIMONIDINE 0.15% 5 ML OPHT.BTL EACHEYE SCH ×2 (09:17→21:50)
[2018-07-31] MEDS: ASPIRIN 81 MG CHEWABLE TAB PO SCH (09:30)
[2018-07-31] MEDS: NICOTINE 14 MG/24 HR PATCH TD SCH (09:30)
--- NOTE | 2018-07-31 17:01 | ASMTCMCOM ---
CM Note CM Note Notes: Spoke w/HAND SHAKER, pt will be here for another 3-4 days d/t elevated LFTs. CM also spoke w/, and he has chosen [facility] for rehab when patient is medically stable. DC Plan: SNF/ [facility] Date Signed: 07/31/2018 05:00 PM Electronically Signed By:Chanelle Baker RN
[2018-07-31] MEDS: POLYETHYLENE GLYCOL 3350 17 GM PKT PO SCH (21:47)
[2018-07-31] MEDS: GABAPENTIN 300 MG CAP PO SCH (21:47)
[2018-07-31] MEDS: BIMATOPROST 0.01% 2.5 ML OPHT.BTL LEFTEYE SCH (21:50)
[2018-08-01] MEDS: SENNOSIDES 1 TAB PO PRN ×2 (00:29→22:16)
[2018-08-01 05:29] LABS: PLATELET COUNT 280 10^3/uL (150-400)
[2018-08-01] MEDS: IPRATROPIUM/ALBUTEROL 3 ML DEYVIAL IH SCH ×4 (06:34→22:00)
[2018-08-01] MEDS: ENOXAPARIN 30 MG/0.3 ML SYR SC SCH (07:58)
[2018-08-01] MEDS: ASPIRIN 81 MG CHEWABLE TAB PO SCH (07:59)
[2018-08-01] MEDS: CETIRIZINE 10 MG TAB PO SCH (07:59)
[2018-08-01] MEDS: traMADol 50 MG TAB PO SCH ×3 (08:00→21:52)
[2018-08-01] MEDS: PRESERVISION AREDS2 FORMULA EYE VIT 1 EACH PO SCH ×2 (08:01→21:52)
[2018-08-01] MEDS: guaiFENesin 600 MG TAB.ER PO SCH ×2 (08:01→21:52)
[2018-08-01] MEDS: POTASSIUM CL 20 MEQ TAB PO SCH ×2 (08:01→21:52)
[2018-08-01] MEDS: GABAPENTIN 100 MG CAP PO SCH ×2 (08:01→16:23)
[2018-08-01] MEDS: TEARS/DEXTRAN 70/HYPROMELLOSE 15 ML OPHT.BTL RTEYE PRN ×2 (08:07→16:14)
[2018-08-01] MEDS: BRIMONIDINE 0.15% 5 ML OPHT.BTL EACHEYE SCH ×2 (08:15→21:53)
--- NOTE | 2018-08-01 11:14 | HOSPPROG ---
Hospitalist Progress Note Assessment/Plan: 78 yo F with hx of COPD and nocturnal hypoxia presenting with sob/cough/ weakness in setting of LLL PNA. # LLL PNA, postobstructive -dc azithro, cont Ceftriaxone -reviewed chest xray, no significant changes, # acute on chronic hypoxic respiratory failure: -at baseline only requires o2 at night #Parapneumonic effusion -s/p 550 ml of fluid removed, cytology pending. 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 will cont nebs, abx. Subjective: Shawna is still feeling short of breath. Objective: Vital Signs Temp Pulse Resp BP Pulse Ox 37.3 C 85 12 125/66 H 94 08/01/18 07:32 08/01/18 10:27 08/01/18 10:27 08/01/18 07:32 08/01/18 10:27 Microbiology 07/30/18 17:10 Gram Stain - Final Pleural Fluid - Aspirate Laboratory Results 08/01/18 04:18 08/01/18 04:18 07/31/18 08/01/18 08/02/18 05:59 05:59 04:59 Intake Total 350 1000 Output Total 900 1650 100 Balance -550 -650 -100 - Physical Exam Constitutional: not in pain, chronically ill appearing, cachectic Eyes: PERRL Ears, Nose, Mouth, Throat: hearing normal Cardiovascular: regular rate and rhythym Respiratory: reduced air movement Skin: warm Musculoskeletal: generalized weakness Neurologic: AAOx3 Psychiatric: interacting appropriately, not anxious ICD10 Worksheet Patient Problems: Problems Problem Status Onset Pneumonia Acute Anemia Acute Iron deficiency anemia Acute
[2018-08-01] MEDS: NICOTINE 14 MG/24 HR PATCH TD SCH (13:23)
[2018-08-01] MEDS: ACETAMINOPHEN 325 MG TAB PO PRN ×2 (16:23→22:16)
--- NOTE | 2018-08-01 17:17 | PDINTPN ---
Special Education Assistant Progress Note Assessment/Plan: ASSESSMENT AND PLAN 78-year-old female with significant smoking history admitted with post obstructive pneumonia and associated parapneumonic effusion due to a lung mass. The hypervascular mass like consolidation and patient's left lower lobe most likely represents malignancy. A smaller lesion was noted in the same area from a CT chest in 2014. Is possible that a dense consolidation from pneumonia may appear as a mass but this is less likely in her case. She is clinically improving after thoracentesis and with ongoing abx. # complex parapneumonic effusion S/p diagnostic and therapeutic thoracentesis 07/30/18. Serial imaging stable - follow up CXR in [address] Jimenez at [facility] - abx as per below - follow up pleural fluid cultures and cytology # postobstructive pneumonia Due to tumor. Clinically improving - continue CTX while in hospital - change to Augmentin 875/125 on discharge with 30 day supply # right lower lobe lung mass First noticed in [address] chest. High suspicion for malignancy. Patient and declined further invasive diagnostic testing - if the pleural fluid from thoracentesis is positive she would be stage IV - will defer biopsy until after infection is adequately treated # acute on chronic hypoxemic respiratory failure V/Q mismatching and shunt from infection and mass in left lower lobe. Expect some interval improvement with treating infection over the coming days. Patient will likely need to be discharged with oxygen. Agree with not administering and corticosteroids # goals of care As per above. Continue discussions with patient and her Thank you for this consult. Please feel free to call with any questions or concerns Subjective: Patient with interval improvement in symptoms today. Her oxygen requirements have slowly trended down. Her leukocytosis has significantly improved. She denies headaches, chest pains, new shortness of breath, leg swelling fevers or chills Objective: Vital Signs Temp Pulse Resp BP Pulse Ox 36.4 C 94 18 126/84 H 96 08/01/18 15:38 08/01/18 15:38 08/01/18 15:38 08/01/18 15:38 08/01/18 15:38 Microbiology 07/30/18 17:10 Gram Stain - Final Pleural Fluid - Aspirate Laboratory Results 08/01/18 04:18 08/01/18 04:18 07/31/18 08/01/18 08/02/18 05:59 05:59 04:59 Intake Total 350 1000 Output Total 900 1650 100 Balance -550 -650 -100 I reviewed patient's radiographic images. Chest x-ray from 08/01/2018 with stable lower lobe infiltrate Physical Exam - Physical Exam General Appearance: alert, no apparent distress EENT: PERRL/EOMI, normal ENT inspection Neck: non-tender, supple Respiratory: chest non-tender, other (Decreased breath sounds left base), No respiratory distress Cardiac/Chest: regular rate, rhythm, No edema Abdomen: normal bowel sounds, non-tender Skin: normal color, warm/dry Extremities: normal range of motion, non-tender Neuro/Psych: no motor/sensory deficits, alert, normal mood/affect, oriented x 3 ICD10 Worksheet Patient Problems: Problems Problem Status Onset Pneumonia Acute Anemia Acute Iron deficiency anemia Acute
[2018-08-01] MEDS: POLYETHYLENE GLYCOL 3350 17 GM PKT PO SCH (21:52)
[2018-08-01] MEDS: GABAPENTIN 300 MG CAP PO SCH (21:52)
[2018-08-01] MEDS: BIMATOPROST 0.01% 2.5 ML OPHT.BTL LEFTEYE SCH (21:53)
[2018-08-02] MEDS: IPRATROPIUM/ALBUTEROL 3 ML DEYVIAL IH SCH ×2 (06:22→11:57)
[2018-08-02 07:30] VITALS: BP 121/58
[2018-08-02] MEDS: ENOXAPARIN 30 MG/0.3 ML SYR SC SCH (07:52)
[2018-08-02] MEDS: guaiFENesin 600 MG TAB.ER PO SCH (07:53)
[2018-08-02] MEDS: POTASSIUM CL 20 MEQ TAB PO SCH (07:53)
[2018-08-02] MEDS: PRESERVISION AREDS2 FORMULA EYE VIT 1 EACH PO SCH (07:53)
[2018-08-02] MEDS: ASPIRIN 81 MG CHEWABLE TAB PO SCH (07:53)
[2018-08-02] MEDS: traMADol 50 MG TAB PO SCH (07:54)
[2018-08-02] MEDS: GABAPENTIN 100 MG CAP PO SCH (07:54)
[2018-08-02] MEDS: CETIRIZINE 10 MG TAB PO SCH (07:54)
[2018-08-02] MEDS ORDERED: AMOXICILLIN/CLAVULANATE POT 875/125 MG TAB PO SCH (09:30)
--- NOTE | 2018-08-02 10:59 | HOSPPROG ---
Hospitalist Progress Note Assessment/Plan: 78 yo F with hx of COPD and nocturnal hypoxia presenting with sob/cough/ weakness in setting of LLL PNA. # LLL PNA, postobstructive -dc azithro, Ceftriaxone -reviewed chest xray, no significant changes -dc on Augmentin # acute on chronic hypoxic respiratory failure: -at baseline only requires o2 at night -down to 2 liters #Parapneumonic effusion -s/p 550 ml of fluid removed, cytology pending. 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 Objective: Vital Signs Temp Pulse Resp BP Pulse Ox 36.5 C 85 18 121/58 H 100 08/02/18 07:27 08/02/18 07:27 08/02/18 07:27 08/02/18 07:27 08/02/18 07:27 Microbiology 07/30/18 17:10 Gram Stain - Final Pleural Fluid - Aspirate Laboratory Results 08/01/18 04:18 08/02/18 05:17 08/01/18 08/02/18 08/03/18 06:59 05:59 05:59 Intake Total Output Total Balance - Physical Exam Constitutional: chronically ill appearing, cachectic Eyes: PERRL Ears, Nose, Mouth, Throat: hearing normal Cardiovascular: regular rate and rhythym Respiratory: reduced air movement (left lobe) Skin: warm Musculoskeletal: generalized weakness Neurologic: AAOx3 Psychiatric: interacting appropriately ICD10 Worksheet Patient Problems: Problems Problem Status Onset Pneumonia Acute Anemia Acute Iron deficiency anemia Acute
--- NOTE | 2018-08-02 11:22 | PDIAF ---
- Diagnosis Diagnosis: complex parapneumonic effusion, left lung pna, lung mass Code Status: Do Not Resuscitate - Medication Management Discharge Medications: electronically signed and located in the Home Medication List. PICC Care - Routine: N/A - Orders Services needed: Physical Therapy, Occupational Therapy Isolation Type: None Oxygen: 3 liters Diet Recommendation: no restrictions on diet Diet Texture: Regular Texture Diet Additional Instructions: FOLLOW UP WITH DR CHERY RETINOLOGIST IN [place] ON AUGUST 06 AT 14:[address] Jimenez in 2 weeks and get a repeat chest x ray at that time f/u with Dr Jimenez in regards to cytology from your pleural fluid take Augmentin bid x 30 days, Dr Jimenez will decide how long and may decide a shorter or longer time frame repeat CTA in 6 weeks, the landfill gas technician will help arrange this - Labs/Radiology BMP Date: 08/04/18 CBC w/diff Date: 08/04/18 Imaging Orders: chest xray in 2 weeks - Follow Up Care Current Providers and Referrals: Jarvis Jimenez MD [Medical Doctor] - Maddie Peck MD [Primary Care Provider] - As per Instructions
[2018-08-02] MEDS: BRIMONIDINE 0.15% 5 ML OPHT.BTL EACHEYE SCH (12:20)
[2018-08-02] MEDS: NICOTINE 14 MG/24 HR PATCH TD SCH (12:20)
--- NOTE | 2018-08-02 12:31 | ASMTLACE ---
LACE Length of stay for Answers: 4-6 days current admission Acuity / Level of Answers: Yes Care: Did the patient have an inpatient admission? Comorbidities - select Answers: Chronic pulmonary disease all that apply Opioid dependence / Chronic pain Other Notes: HTN; Macular degenerati on # of Emergency department Answers: 1-2 visits in the last 6 months Score: 15 Date Signed: 08/02/2018 12:30 PM Electronically Signed By:April Johnson RN
--- NOTE | 2018-08-02 12:50 | GDS ---
DISCHARGE DIAGNOSES: 1. Left lower lobe pneumonia postobstructive. 2. Acute on chronic hypoxemic respiratory failure. 3. Parapneumonic effusion. 4. Lung mass. 5. Sepsis. 6. Underweight with a body mass index of 17. 7. Chronic obstructive pulmonary disease with acute exacerbation. 8. Hypertension. 9. Hyponatremia. 10. Hypokalemia. 11. Anemia. 12. General weakness. 13. Elevated liver enzymes. CONSULTATION: Dr. Jimenez with Pulmonology. HISTORY OF PRESENT ILLNESS: Briefly, the patient is an 78-year-old woman with COPD and nocturnal hypoxemia. She presented to the emergency room with shortness of breath, cough, weakness. She had a chest x-ray performed that showed that she had a left lower lobe pneumonia. She was very slow to improve during her stay, so subsequently a CTA was performed. This showed no evidence of a PE, but it did note she had a moderate-size left pleural effusion with subtotal opacification of the left lower lobe with scattered air bronchograms and dense parenchymal consolidation, which could represent infiltrate, although an underlying neoplasm is not excluded. There is also some compressive atelectasis in the inferior lingula, and the posterior right lower lobe. It is also noted that she had a small right pleural effusion and a simple pericardial effusion. She was seen and evaluated by Dr. Jimenez with Pulmonology. He evaluated the CTA and noted that her masslike consolidation could likely represent a malignancy. She also had a smaller lesion in the same area from a CT in 2015. He spoke with her and her , and they agreed for a diagnostic and therapeutic thoracentesis, which did improve her dyspnea. It was noted that she had a parapneumonic effusion. She continued IV antibiotics. Today, she is feeling better. Her Gram stain from her fluid showed no organisms seen without growth. Cytology is still pending. She will further follow up with pulmonology in the outpatient setting. HOSPITAL COURSE PER PROBLEM: 1. Left lower lobe pneumonia, postobstructive. She was treated with ceftriaxone. She had a chest x-ray yesterday that did not show significant changes. She is on less oxygen and not tachycardic. She will be discharged on Augmentin with close followup with Pulmonology. 2. Acute on chronic hypoxemic respiratory failure. At baseline, she only requires oxygen at night. Today, she is down to 2 L. 3. Parapneumonic effusion. She is status post 550 mL of fluid removed and is breathing better. 4. Lung mass. She will need a repeat CT in 6 weeks. 5. Sepsis, resolved. 6. Underweight. She has a BMI of 17. 7. COPD with an acute exacerbation. This is complicated in the setting of pneumonia. She was treated with nebulizer treatments. 8. Hypertension on home medications. 9. Hyponatremia. This was secondary to volume depletion. 10. Hypokalemia, resolved. 11. Anemia. She is slightly lower than her baseline, probably due to acute illness. 12. General weakness. She is going to [facility] for rehabilitation. 13. Elevated liver enzymes. These decreased. Will have them rechecked in a few days at the rehab facility. DISCHARGE CONDITION: Stable. Blood pressure is 120/58, heart rate of 85, respiratory rate of 18, O2 saturation on 2 L are 100%, temperature is 36.5 Celsius. MEDICATIONS AT DISCHARGE: Please see the EMR. DISCHARGE INSTRUCTIONS: 1. She needs a followup appoint with her Retinologist this coming . 2. To see Dr. Jimenez in 2 weeks and get a repeat chest x-ray at that time, and to follow up with him in regard to cytology of her pleural fluid. 3. Take Augmentin twice daily for [address] Jimenez will decide length of time with this. 4. Repeat CT in 6 weeks. Greater than 30 minutes discharging and coordinating the patient's care. Copy requested to: Dr. Hernandez /[id number]/MODL MTDD
--- NOTE | 2018-08-02 13:14 | PDINTPN ---
Fiber Optic Assembler Progress Note Assessment/Plan: ASSESSMENT AND PLAN 78-year-old female with significant smoking history admitted with post obstructive pneumonia and associated parapneumonic effusion due to a lung mass. The hypervascular mass like consolidation and patient's left lower lobe most likely represents malignancy. A smaller lesion was noted in the same area from a CT chest in 2014. Is possible that a dense consolidation from pneumonia may appear as a mass but this is less likely in her case. She is clinically improving after thoracentesis and with ongoing abx. # complex parapneumonic effusion S/p diagnostic and therapeutic thoracentesis 07/30/18. Serial imaging stable - follow up CXR in [address] Jimenez at [facility] - abx as per below - follow up pleural fluid cultures and cytology # postobstructive pneumonia Due to tumor. Clinically improving - continue CTX while in hospital - change to Augmentin 875/125 on discharge with 30 day supply, as post obs pna require longer duration of abx # right lower lobe lung mass First noticed in [address] chest. High suspicion for malignancy. Patient and declined further invasive diagnostic testing - if the pleural fluid from thoracentesis is positive she would be stage IV - will defer biopsy until after infection is adequately treated # acute on chronic hypoxemic respiratory failure V/Q mismatching and shunt from infection and mass in left lower lobe. Expect some interval improvement with treating infection over the coming days. Patient will likely need to be discharged with oxygen. Agree with not administering and corticosteroids # goals of care As per above. Continue discussions with patient and her Thank you for this consult. Please feel free to call with any questions or concerns Subjective: Leukocytosis resolved. Oxygen requirements have continued to trend down, patient feels better but still not back to baseline. No culture results from pleural fluid. Patient denies headaches fevers chills chest pain new shortness of breath or leg swelling. Objective: Vital Signs Temp Pulse Resp BP Pulse Ox 36.5 C 87 16 121/58 H 95 08/02/18 07:27 08/02/18 11:57 08/02/18 11:57 08/02/18 07:27 08/02/18 11:57 Microbiology 07/30/18 17:10 Gram Stain - Final Pleural Fluid - Aspirate Body Fluid Culture - Final Laboratory Results 08/01/18 04:18 08/02/18 05:17 08/01/18 08/02/18 08/03/18 06:59 05:59 05:59 Intake Total Output Total Balance I have reviewed and interpreted patient radiographic imaging. Serial chest x- rays stability and infiltrate and trivial effusion. Physical Exam - Physical Exam EENT: PERRL/EOMI, normal ENT inspection Neck: non-tender, full range of motion Respiratory: chest non-tender, other (Decreased breath sounds left lung base) Cardiac/Chest: normal peripheral pulses, regular rate, rhythm, No edema Abdomen: non-tender, soft Back: Normal inspection Extremities: normal range of motion, non-tender Neuro/Psych: no motor/sensory deficits, alert, normal mood/affect, oriented x 3 ICD10 Worksheet Patient Problems: Problems Problem Status Onset Pneumonia Acute Anemia Acute Iron deficiency anemia Acute
--- NOTE | 2018-08-02 14:03 | ASDISCHSUM ---
Discharge Information Plan Status:SNF Medically Cleared to Leave:08/02/2018 Discharge Date:08/02/2018 01:58 PM CM D/C Disposition:Retirement Facility ADT D/C Disposition:Retirement Facility Projected Discharge Date:07/29/2018 11:00 AM Transportation at D/C:Other Discharge Delay Reason: Follow-Up Date:07/29/2018 11:00 AM Discharge Slot:2 - 12:01 pm - 18:00 pm Final Diagnosis:LLL PNA, acute on chronic hypoxic respiratory failure, parapneumonic effusion, LLL l keli m mass, sepsis, decreased BMI, HTN, hyponatremia Placement Information Referral Type:*Penitentiary/SNF Referral ID:[id number] Provider Name:Roxi Cardoza Address 1:[address] Phone Number: Address 2: Fax Number: City:[place] Selection Factors:Patient/Family Choice State:[place] Patient Contact Information Contact Name:VERONICA Relationship: Address:[address] City:[place] Alternate Phone: State/Zip Code:[place] [address] Email: Financial Information Financial Class:Medicare Primary Plan Desc:MEDICARE INPATIENT Primary Plan Number:[id number] Secondary Plan Desc:[employer] FEDERAL PLAN Secondary Plan Number:[id number] Assessment Information LACE LACE Length of stay for Answers: 4-6 days current admission Acuity / Level of Answers: Yes Care: Did the patient have an inpatient admission? Comorbidities - select Answers: Chronic pulmonary disease all that apply Opioid dependence / Chronic pain Other Notes: HTN; Macular degenerati on # of Emergency department Answers: 1-2 visits in the last 6 months Score: 15 Date Signed: 08/02/2018 12:30 PM Electronically Signed By:April Johnson RN [facility] Progress Note CM Note CM Note Notes: Pt is a 78 y/o man admitted for PNA. CM spoke to RICARDO Borrero regarding d/c POC. PT is recommending SNF. CM spoke to pts Akin on the phone. Akin would like referals made to [facility], [facility] and [facility] Akin' first choice is [facility]. Akin reports that he had a neighbor go to [facility] and had a good experience. Akin reports that he is having back surgery on 08/03 and will not be able to take care of pt.. Referrals sent. CM to follow. Plan: SNF Date Signed: 07/28/2018 02:45 PM Electronically Signed By:CALIXTO Hampton [facility] Progress Note CM Note CM Note Notes: CM spoke to pts Akin on the phone. Akin went to tour [facility] today. Akin will tour [facility] tomorrow. Akin will let CM know what he ends up choosing. CM to follow. Plan: [facility] Date Signed: 07/29/2018 03:59 PM Electronically Signed By:CALIXTO Hampton [facility] Progress Note CM Note ERINN Note Notes: Spoke w/[facility], pt will be here for another 3-4 days d/t elevated LFTs. CM also spoke w/, and he has chosen [facility] for rehab when patient is medically stable. DC Plan: SNF/ [facility] Date Signed: 07/31/2018 05:00 PM Electronically Signed By:Chanelle Baker RN Case Management Discharge Plan Note Case Management Discharge Discharge Order Complete? Answers: Yes Followup Appointment 08/06/2018 02:10 PM Patient to Obtain Answers: Other Notes: via [facility] Medications Transportation Arranged Answers: Other Notes: [facility] stretcher transport arranged and to be paid for by [employer] Transport will Pick (Date 08/02/2018 02:00 PM & Time) EMTALA Complete Answers: No Notes: N/A Case Management Transport Answers: Yes Notes: Provided to Form Complete Faxed Final Orders Answers: Yes Notes: Sent via [employer], confirmed receipt with Sil at [facility] Agency/Facility Transfer Answers: Yes Notes: Sent via Report Printed & Faxed to [facility], confirmed Receiving Agency receipt with Sil at [facility] Family Notified Answers: Yes Notes: Akin updated Discharge Comments Notes: Reviewed chart, spoke with RICARDO Whitmore and Joanne Vera NP regarding discharge plan of care, pt's progress. Per Joanne, pt likely ready for discharge to SNF today. Met with pt to discuss plan. Pt agreeable to transfer to [facility]. Pt stated if she doesn't go today, she cannot discharge until Friday08/04/18 secondary to her 's scheduled surgery on Friday08/03/18. Call placed to pt's Akin to discuss plan (per pt's request). agreeable to discharge to [facility]. Update provided to THEO Rubio. Call placed to Sil at [facility], confirmed bed availability. Per Sil, able to accept. Pt requesting to transfer via stretcher secondary to fatigue, decompensation and pain with prolonged sitting. Sil arranged for oxygen and stretcher transport with [facility] for 14:00. Update provided to pt and pt's , Akin. Discussed possible charges for stretcher transport with . Everyone agreeable to plan. IM signed. Pt to follow up as directed. [facility] alerted to pt's appointment with her Retinologist, Dr. Mcclure in [place], on 08/06/18 at 14:10. [facility] to arrange for transportation to and from appointment. CM available for any further issues or concerns. Discharge Plan: [facility] Date Signed: 08/02/2018 02:00 PM Electronically Signed By:April Johnson RN Intervention Information Intervention Type:*IM-Signed Date of Service:08/02/2018 02:02 PM Patient Type:Inpatient Staff Member:RICARDO Johnson, April Hours: Discipline: Severity: Comment:
--- NOTE | 2018-08-02 14:03 | ASMTDCNOTE ---
Case Management Discharge Discharge Order Complete? Answers: Yes Followup Appointment 08/06/2018 02:10 PM Patient to Obtain Answers: Other Notes: [facility] Medic[facility] Transportation Arranged Answers: Other Notes: [facility] stretcher transport arranged and to be paid for by [employer] Transport will Pick (Date 08/02/2018 02:00 PM & Time) MANDY Complete Answers: No Notes: N/A Case Management Transport Answers: Yes Notes: Provided to [facility] Form Complete Faxed Final Orders Answers: Yes Notes: Sent via [employer], confirmed receipt with Sil at [facility] Agency/Facility Transfer Answers: Yes Notes: Sent via Report Printed & Faxed to [employer], confirmed Receiving Agency receipt with Sil at [facility] Family Notified Answers: Yes Notes: Akin updated Discharge Comments Notes: Reviewed chart, spoke with RICARDO Whitmore and Joanne Vera NP regarding discharge plan of care, pt's progress. Per Joanne, pt likely ready for discharge to SNF today. Met with pt to discuss plan. Pt agreeable to transfer to [facility]. Pt stated if she doesn't go today, she cannot discharge until Friday08/04/18 secondary to her 's scheduled surgery on Friday08/03/18. Call placed to pt's Akin to discuss plan (per pt's request). agreeable to discharge to [facility]. Update provided to THEO Rubio. Call placed to Sil at [facility], confirmed bed availability. Per Sil, able to accept. Pt requesting to transfer via stretcher secondary to fatigue, decompensation and pain with prolonged sitting. [facility] arranged for oxygen and stretcher transport with [facility] for 14:00. Update provided to pt and pt's , Akin. Discussed possible charges for stretcher transport with . Everyone agreeable to plan. IM signed. Pt to follow up as directed. [facility] alerted to pt's appointment with her Retinologist, Dr. Mcclure in [place], on 08/06/18 at 14:10. [facility] to arrange for transportation to and from appointment. CM available for any further issues or concerns. Discharge Plan: [facility] SNF Rehab Date Signed: 08/02/2018 02:00 PM Electronically Signed By:April Johnson RN
== END 2018-08-02 13:58 | DRG 871 ==
LOC: OBSVTOIN 21:01 → F3E 22:17
PROVIDERS: ADMIT Internal Medicine; ATTEND Internal Medicine
PROC: 0W9B3ZZ Drainage of Left Pleural Cavity, Percutaneous Approach (ICD-10-PCS; principal; 2018-07-30)
DX: A41.9 Sepsis, unspecified organism (principal); J18.9 Pneumonia, unspecified organism; J96.21 Acute and chronic respiratory failure with hypoxia; J44.1 Chronic obstructive pulmonary disease with (acute) exacerbation; E87.1 Hypo-osmolality and hyponatremia; E87.6 Hypokalemia; J91.8 Pleural effusion in other conditions classified elsewhere; D49.1 Neoplasm of unspecified behavior of respiratory system; I10 Essential (primary) hypertension; Z87.891 Personal history of nicotine dependence; R63.6 Underweight; Z68.1 Body mass index [BMI] 19.9 or less, adult
CPT/HCPCS: 96365; 97116-GP; 97162-GP; 97165-GO; 97530-GO; 97530-GP; 97535-GO; G8978-GP-CK; G8979-GP-CI; G8987-GO-CJ; G8988-GO-CI; J0456; J0696; J1650; J3475; Q9967

== ENCOUNTER → 2018-08-13 | Outpatient (CLI) | payer OTHER, BC | LOC: FIMAGING 10:22 → EDSTATUS 10:23 | PROVIDERS: ATTEND Internal Medicine Pulmonary Disease | DX: J18.9 Pneumonia, unspecified organism (principal) ==

== ENCOUNTER → 2018-09-08 | Outpatient (CLI) | payer OTHER, BC ==
[~2018-09-08] MED LIST: IOPAMIDOL (ISOVUE-300) 100 ML BTL ONE
== END ==
LOC: FIMAGING 13:20
PROVIDERS: ATTEND Internal Medicine Pulmonary Disease
DX: J18.9 Pneumonia, unspecified organism (principal); J43.2 Centrilobular emphysema; Z98.82 Breast implant status
CPT/HCPCS: 71260; Q9967

== ENCOUNTER → 2018-11-06 | Outpatient (CLI) | payer BC | LOC: BMCIMAGING 14:32 | PROVIDERS: ATTEND Internal Medicine | DX: R55 Syncope and collapse (principal); J18.9 Pneumonia, unspecified organism; J43.9 Emphysema, unspecified ==

== ENCOUNTER → 2018-11-13 | Outpatient (CLI) | payer BC | LOC: BMCIMAGING 12:01 | PROVIDERS: ATTEND Internal Medicine | DX: J18.1 Lobar pneumonia, unspecified organism (principal) ==

== ENCOUNTER → 2018-12-04 | Outpatient (CLI) | payer BC ==
[~2018-12-04] MED LIST changes: +IOPAMIDOL (ISOVUE 370) 100 ML BTL IV ONE; -IOPAMIDOL (ISOVUE-300) 100 ML BTL ONE
== END ==
LOC: FIMAGING 13:16
PROVIDERS: ATTEND Internal Medicine Pulmonary Disease
DX: R91.8 Other nonspecific abnormal finding of lung field (principal); M25.411 Effusion, right shoulder; M79.89 Other specified soft tissue disorders
CPT/HCPCS: Q9967

== ENCOUNTER → 2018-12-25 | Outpatient (CLI) | payer BC | LOC: FIMAGING 13:46 | PROVIDERS: ATTEND Internal Medicine Pulmonary Disease | DX: R53.83 Other fatigue (principal); B33.8 Other specified viral diseases; I50.9 Heart failure, unspecified ==